=== PATIENT | female | born 1975 | race Caucasian/White ===

== ENCOUNTER → 2016-07-18 | Outpatient (CLI) | payer MEDICARE, MEDICAID ==
[~2016-07-18] MED LIST: ALBU18HF INH; AMIT50TA PO; CYCL-259 PO; ESOM40CA PO; GABA100C8 PO; INSU100C SQ-INSULIN; INSU100V8 SQ; MONT10TA6 PO; OXYC1TAB8 PO; SALM50DI INH; TRAZ50TA18 PO
[2016-07-18 13:38] LABS: HEMOGLOBIN 13.1 g/dL (11.7-16.4)
[2016-07-18 14:01] LABS: BLOOD UREA NITROGEN 10 mg/dL (7-18)
[2016-07-18 14:26] LABS: ASPARTATE AMINO TRANSFERASE 31 U/L (15-37)
[2016-07-19 10:07] LABS: CREATININE URINE 21.5 mg/dL (Not Estab.)
== END | disposition home or self-care (01) ==
LOC: LAB 13:05
PROVIDERS: ATTEND Family Medicine Adult Medicine
DX: E11.9 Type 2 diabetes mellitus without complications (principal); E78.5 Hyperlipidemia, unspecified; I10 Essential (primary) hypertension
CPT/HCPCS: 36415; 80053; 80061; 82043; 82570; 83036; 85025

== ENCOUNTER → 2016-08-01 | Outpatient (CLI) | payer MEDICARE, MEDICAID ==
[2016-08-01 13:05] LABS: HEMOGLOBIN 13.6 g/dL (11.7-16.4)
[2016-08-02 11:06] LABS: CREATININE URINE 57.3 mg/dL (Not Estab.)
== END | disposition home or self-care (01) ==
LOC: LAB 12:38
PROVIDERS: ATTEND Acupuncturist
DX: E11.65 Type 2 diabetes mellitus with hyperglycemia (principal); E11.3219 Type 2 diabetes mellitus with mild nonproliferative diabetic retinopathy with macular edema, unspecified eye; E78.5 Hyperlipidemia, unspecified; L02.93 Carbuncle, unspecified; Z79.4 Long term (current) use of insulin
CPT/HCPCS: 36415; 80061; 82043; 82306; 82570; 83036; 85025

== ENCOUNTER → 2016-12-05 | Outpatient (CLI) | payer MEDICARE, MEDICAID ==
[~2016-12-05] MED LIST changes: +GABA-826 PO; -GABA100C8 PO
[2016-12-05 14:47] LABS: HEMATOCRIT 41.6 % (34.6-47.8); WHITE BLOOD COUNT 7.6 x10^3/uL (3.4-10)
[2016-12-05 14:57] LABS: BLOOD UREA NITROGEN 11 mg/dL (7-18)
[2016-12-05 15:08] LABS: ASPARTATE AMINO TRANSFERASE 20 U/L (15-37)
== END | disposition home or self-care (01) ==
LOC: LAB 14:22
PROVIDERS: ATTEND Obstetrics & Gynecology Gynecology
DX: E78.5 Hyperlipidemia, unspecified (principal); E03.9 Hypothyroidism, unspecified; R53.83 Other fatigue; D64.9 Anemia, unspecified; O92.6 Galactorrhea
CPT/HCPCS: 36415; 80053; 83001; 83002; 84146; 84439; 84443; 85027

== ENCOUNTER → 2016-12-14 | Outpatient (CLI) | payer MEDICARE, MEDICAID | END | disposition home or self-care (01) | LOC: LAB 13:25 | PROVIDERS: ATTEND Acupuncturist | DX: R20.0 Anesthesia of skin (principal); R20.2 Paresthesia of skin | CPT/HCPCS: 36415; 82607; 82746 ==

== ENCOUNTER → 2016-12-28 | Outpatient (CLI) | payer MEDICARE, MEDICAID ==
[2016-12-29 09:08] LABS: CREATININE URINE 32.4 mg/dL (Not Estab.)
== END | disposition home or self-care (01) ==
LOC: LAB 13:05
PROVIDERS: ATTEND Family Medicine Adult Medicine
DX: E11.9 Type 2 diabetes mellitus without complications (principal); E78.5 Hyperlipidemia, unspecified; I10 Essential (primary) hypertension
CPT/HCPCS: 82043; 82570

== ENCOUNTER → 2017-01-06 | Outpatient (CLI) | payer MEDICARE, MEDICAID ==
[2017-01-10 15:07] LABS: TESTOSTERONE FREE DIRECT 0.9 pg/mL (0.0-4.2)
== END | disposition home or self-care (01) ==
LOC: LAB 12:35
PROVIDERS: ATTEND Obstetrics & Gynecology Gynecology
DX: E78.5 Hyperlipidemia, unspecified (principal); R53.83 Other fatigue; D64.9 Anemia, unspecified; E07.9 Disorder of thyroid, unspecified; O92.6 Galactorrhea
CPT/HCPCS: 36415; 83498; 83525; 84402; 84403

== ENCOUNTER → 2017-01-12 | Outpatient (CLI) | payer MEDICARE, MEDICAID ==
[2017-01-12 14:44] LABS: HEMATOCRIT 44.5 % (34.6-47.8); HEMOGLOBIN 15.2 g/dL (11.7-16.4); WHITE BLOOD COUNT 7.5 x10^3/uL (3.4-10)
[2017-01-12 14:46] LABS: BLOOD UREA NITROGEN 14 mg/dL (7-18)
[2017-01-12 14:54] LABS: ASPARTATE AMINO TRANSFERASE 18 U/L (15-37)
== END | disposition home or self-care (01) ==
LOC: STAR 13:03
PROVIDERS: ATTEND Obstetrics & Gynecology
DX: Z01.818 Encounter for other preprocedural examination (principal); N94.6 Dysmenorrhea, unspecified
CPT/HCPCS: 36415; 80053; 81003; 84703; 85025; 93005

== ENCOUNTER → 2017-03-03 | Outpatient (CLI) | payer MEDICARE, MEDICAID ==
[2017-03-03 14:39] LABS: HEMOGLOBIN 13.5 g/dL (11.7-16.4); WHITE BLOOD COUNT 7.5 x10^3/uL (3.4-10)
== END | disposition home or self-care (01) ==
LOC: LAB 14:20
PROVIDERS: ATTEND Acupuncturist
DX: L98.499 Non-pressure chronic ulcer of skin of other sites with unspecified severity (principal); R05 Cough
CPT/HCPCS: 36415; 85025

== ENCOUNTER → 2017-03-17 | Outpatient (CLI) | payer MEDICARE, MEDICAID ==
[2017-03-17 13:46] LABS: HEMATOCRIT 39.8 % (34.6-47.8); HEMOGLOBIN 13.4 g/dL (11.7-16.4); WHITE BLOOD COUNT 5.5 x10^3/uL (3.4-10)
[2017-03-17 13:59] LABS: BLOOD UREA NITROGEN 8 mg/dL (7-18)
[2017-03-17 14:03] LABS: ASPARTATE AMINO TRANSFERASE 18 U/L (15-37)
== END ==
LOC: LAB 13:19
PROVIDERS: ATTEND Internal Medicine Cardiovascular Disease
DX: Z01.810 Encounter for preprocedural cardiovascular examination (principal); I10 Essential (primary) hypertension; E11.8 Type 2 diabetes mellitus with unspecified complications; E78.00 Pure hypercholesterolemia, unspecified; F17.210 Nicotine dependence, cigarettes, uncomplicated
CPT/HCPCS: 36415; 80053; 80061; 83036; 85025

== ENCOUNTER → 2017-04-21 | Outpatient (CLI) | payer MEDICARE, MEDICAID ==
[2017-04-21 15:01] LABS: BASOPHILS # (AUTO) 0.02 x10^3/uL (0-0.1); BASOPHILS % (AUTO) 0 % (0-1); EOSINOPHILS # (AUTO) 0.11 x10^3/uL (0-0.4); EOSINOPHILS % (AUTO) 2 % (1-7); LYMPHOCYTES # (AUTO) 1.84 x10^3/uL (1-3.4); LYMPHOCYTES % (AUTO) 25 % (22-44); MD NO; MEAN CORPUSCULAR HEMOGLOBIN 31.8 pg (27.0-34.8); MEAN CORPUSCULAR HGB CONC 33.7 g/dL (32.4-35.8); MEAN CORPUSCULAR VOLUME 94.3 fL (80-100); MEAN PLATELET VOLUME 10.1 fL (7.4-10.4); MONOCYTES # (AUTO) 0.42 x10^3/uL (0.2-0.8); MONOCYTES % (AUTO) 6 % (2-9); NEUTROPHILS # (AUTO) 4.98 x10^3/uL (1.8-6.8); NEUTROPHILS % (AUTO) 68 % (42-75); PLATELET COUNT 207 x10^3/uL (130-400); RED BLOOD COUNT 4.56 x10^6/uL (3.82-5.3); RED CELL DISTRIBUTION WIDTH 13.1 % (9.6-15.2)
[2017-04-21 15:08] LABS: ALBUMIN 3.6 g/dL (3.4-5.0); ANION GAP 11 mmol/L (5-15); CHLORIDE 100 mmol/L (98-107)
[2017-04-21 15:11] LABS: ALANINE AMINOTRANSFERASE 26 U/L (12-78); ALKALINE PHOSPHATASE 113 U/L (45-117); BILIRUBIN, DIRECT 0.1 mg/dL (0.1-0.2); BILIRUBIN,INDIRECT 0.6 mg/dL (0.0-2.0); BILIRUBIN,TOTAL 0.7 mg/dL (0.2-1.0); CHOLESTEROL, TOTAL 176 mg/dL (140-239); CREATININE 0.89 mg/dL (0.55-1.02); HDL CHOL % 20 % (28-40); HDL CHOLESTEROL (DIRECT) 35 mg/dL (40-60); LDL CHOLESTEROL,CALCULATED 105 mg/dL (54-169); TOTAL PROTEIN 7.5 g/dL (6.4-8.2); TRIGLYCERIDES 179 mg/dL (50-200); VLDL CHOLESTEROL 36 mg/dL (0-25)
[2017-04-21 15:19] LABS: HEMOGLOBIN A1C 11.5 % (4.2-6.3)
== END | disposition home or self-care (01) ==
LOC: LAB 14:35
PROVIDERS: ATTEND Family Medicine
DX: Z00.01 Encounter for general adult medical examination with abnormal findings (principal); R79.89 Other specified abnormal findings of blood chemistry
CPT/HCPCS: 36415; 80048; 80061; 80076; 83036; 85025

== ENCOUNTER → 2017-05-09 | Outpatient (CLI) | payer MEDICARE, MEDICAID ==
[2017-05-09 12:43] LABS: ALBUMIN 3.7 g/dL (3.4-5.0); ANION GAP 8 mmol/L (5-15); CALCIUM 8.8 mg/dL (8.5-10.1); CHLORIDE 101 mmol/L (98-107)
[2017-05-09 12:46] LABS: ALANINE AMINOTRANSFERASE 30 U/L (12-78); ALKALINE PHOSPHATASE 96 U/L (45-117); BILIRUBIN,TOTAL 0.7 mg/dL (0.2-1.0); CHOL/HDL RATIO 4.9; CHOLESTEROL, TOTAL 152 mg/dL (140-239); CREATININE 0.76 mg/dL (0.55-1.02); HDL CHOL % 20 % (28-40); HDL CHOLESTEROL (DIRECT) 31 mg/dL (40-60); LDL CHOLESTEROL,CALCULATED 74 mg/dL (54-169); LDL/HDL RATIO 2.4 (0.5-3.0); TOTAL PROTEIN 7.4 g/dL (6.4-8.2); TRIGLYCERIDES 235 mg/dL (50-200); VLDL CHOLESTEROL 47 mg/dL (0-25)
== END ==
LOC: LAB 12:16
PROVIDERS: ATTEND Family Medicine Adult Medicine
DX: E11.9 Type 2 diabetes mellitus without complications (principal); E78.5 Hyperlipidemia, unspecified
CPT/HCPCS: 36415; 80053; 80061; 82043; 82570; 83036

== ENCOUNTER → 2017-07-25 | Outpatient (CLI) | payer MEDICARE, MEDICAID ==
[2017-07-25 14:37] LABS: HEMOGLOBIN A1C 10.8 % (4.2-6.3)
== END | disposition home or self-care (01) ==
LOC: LAB 13:41
PROVIDERS: ATTEND Family Medicine Adult Medicine
DX: E11.9 Type 2 diabetes mellitus without complications (principal); E78.5 Hyperlipidemia, unspecified
CPT/HCPCS: 36415; 83036

== ENCOUNTER → 2017-08-18 | Outpatient (CLI) | payer MEDICARE, MEDICAID ==
[2017-08-18 14:32] LABS: HEMOGLOBIN A1C 10.9 % (4.2-6.3)
== END | disposition home or self-care (01) ==
LOC: LAB 13:44
PROVIDERS: ATTEND Family Medicine
DX: N92.6 Irregular menstruation, unspecified (principal); N64.3 Galactorrhea not associated with childbirth
CPT/HCPCS: 36415; 83001; 83002; 83036; 84146; 84402; 84403; 84439; 84443

== ENCOUNTER → 2017-11-03 | Outpatient (CLI) | payer MEDICARE, MEDICAID | END | disposition home or self-care (01) | LOC: CFH 14:51 | PROVIDERS: ATTEND Family Medicine | DX: M79.661 Pain in right lower leg (principal); R60.0 Localized edema ==

== ENCOUNTER → 2018-01-26 | Outpatient (CLI) | payer MEDICARE, MEDICAID ==
[~2018-01-26] MED LIST changes: +TRAZ-136 PO; -TRAZ50TA18 PO
[2018-01-26 09:37] LABS: BASOPHILS # (AUTO) 0.01 x10^3/uL (0-0.1); BASOPHILS % (AUTO) 0 % (0-1); EOSINOPHILS # (AUTO) 0.13 x10^3/uL (0-0.4); EOSINOPHILS % (AUTO) 2 % (1-7); LYMPHOCYTES # (AUTO) 1.61 x10^3/uL (1-3.4); LYMPHOCYTES % (AUTO) 26 % (22-44); MD NO; MEAN CORPUSCULAR HEMOGLOBIN 31.3 pg (27.0-34.8); MEAN PLATELET VOLUME 9.8 fL (7.4-10.4); MONOCYTES # (AUTO) 0.41 x10^3/uL (0.2-0.8); MONOCYTES % (AUTO) 7 % (2-9); NEUTROPHILS # (AUTO) 3.94 x10^3/uL (1.8-6.8); NEUTROPHILS % (AUTO) 65 % (42-75); PLATELET COUNT 207 x10^3/uL (130-400); RED BLOOD COUNT 4.51 x10^6/uL (3.82-5.3); RED CELL DISTRIBUTION WIDTH 13.2 % (9.6-15.2)
[2018-01-26 09:49] LABS: ALBUMIN 3.5 g/dL (3.4-5.0); ANION GAP 10 mmol/L (5-15); CALCIUM 8.9 mg/dL (8.5-10.1); CHLORIDE 97 mmol/L (98-107)
[2018-01-26 10:14] LABS: ALANINE AMINOTRANSFERASE 52 U/L (12-78); ALKALINE PHOSPHATASE 155 U/L (45-117); BILIRUBIN,TOTAL 0.5 mg/dL (0.2-1.0); CHOL/HDL RATIO 7.2; CHOLESTEROL, TOTAL 231 mg/dL (140-239); CREATININE 0.94 mg/dL (0.55-1.02); HDL CHOL % 14 % (28-40); HDL CHOLESTEROL (DIRECT) 32 mg/dL (40-60); T4 (THYROXINE) 11.3 mcg/dL (4.8-13.9); TOTAL PROTEIN 7.2 g/dL (6.4-8.2); TRIGLYCERIDES 557 mg/dL (50-200)
[2018-01-26 13:04] LABS: HEMOGLOBIN A1C 12.9 % (4.2-6.3)
== END | disposition home or self-care (01) ==
LOC: LAB 09:11
PROVIDERS: ATTEND Registered Nurse
DX: I10 Essential (primary) hypertension (principal); E11.40 Type 2 diabetes mellitus with diabetic neuropathy, unspecified; E11.65 Type 2 diabetes mellitus with hyperglycemia; Z71.6 Tobacco abuse counseling; Z68.41 Body mass index [BMI] 40.0-44.9, adult
CPT/HCPCS: 36415; 80053; 80061; 82043; 82306; 82570; 82607; 83036; 84436; 84443; 84481; 85025

== ENCOUNTER → 2018-01-30 | Outpatient (CLI) | payer MEDICARE, MEDICAID ==
[2018-01-30 15:04] LABS: ALANINE AMINOTRANSFERASE 53 U/L (12-78); ALBUMIN 3.6 g/dL (3.4-5.0); ANION GAP 7 mmol/L (5-15); CALCIUM 9.2 mg/dL (8.5-10.1); CHLORIDE 100 mmol/L (98-107)
[2018-01-30 15:07] LABS: ALKALINE PHOSPHATASE 155 U/L (45-117); BILIRUBIN,TOTAL 0.5 mg/dL (0.2-1.0); CHOLESTEROL, TOTAL 232 mg/dL (140-239); HDL CHOL % 14 % (28-40); HDL CHOLESTEROL (DIRECT) 33 mg/dL (40-60); TOTAL PROTEIN 7.7 g/dL (6.4-8.2); TRIGLYCERIDES 453 mg/dL (50-200)
[2018-01-30 15:28] LABS: HEMOGLOBIN A1C 13.1 % (4.2-6.3)
== END | disposition home or self-care (01) ==
LOC: LAB 14:32
PROVIDERS: ATTEND Family Medicine Adult Medicine
DX: E11.9 Type 2 diabetes mellitus without complications (principal); E78.5 Hyperlipidemia, unspecified
CPT/HCPCS: 36415; 80053; 80061; 83036

== ENCOUNTER → 2018-04-03 | Outpatient (CLI) | payer MEDICARE, MEDICAID ==
[~2018-04-03] MED LIST changes: -TRAZ-136 PO; +TRAZ50TA66 PO
== END | disposition home or self-care (01) ==
LOC: CFH 14:19
PROVIDERS: ATTEND Obstetrics & Gynecology Gynecology
DX: N64.59 Other signs and symptoms in breast (principal); N93.9 Abnormal uterine and vaginal bleeding, unspecified
CPT/HCPCS: 77066; G0279

== ENCOUNTER 2018-05-19 18:34 | Emergency (ER) | payer MEDICARE, MEDICAID ==
[~2018-05-19] VITALS: Ht 157.5 cm; Wt 95.0 kg
--- NOTE | 2018-05-19 19:12 | NUR ---
PT C/O "DIABETIC WOUND" TO LEFT FOOT. PT PRESENTS TO ED W/ MARKED SWELLING TO LL EXTREMITY AND FOOT WELL RED AND HOT. PT STATES WOUND HAPPENED A COUPLE MONTHS AGO W/ MULTIPLE HOSPITILIZATIONS TO [facility]. PT STATES "I HAVE BEEN 86'D FROM [facility] BECAUSE I WON AN ARGUMENT W/ [facility]. PT DENIES ANY FEVERS AT HOME. MONITORING APPLIED. VSS. CALL LIGHT WITHIN REACH. AWAITING ORDERS.
[2018-05-19] MEDS ORDERED: HYDROcodone/APAP 5/325 TABLET ONE (19:24)
--- NOTE | 2018-05-19 19:28 | NUR ---
PT TO US.
[2018-05-19] MEDS ORDERED: HYDROcodone/APAP 5/325 TABLET PO ONE (19:30)
[2018-05-19 20:14] LABS: BASOPHILS # (AUTO) 0.03 x10^3/uL (0-0.1); BASOPHILS % (AUTO) 1 % (0-1); EOSINOPHILS # (AUTO) 0.09 x10^3/uL (0-0.4); EOSINOPHILS % (AUTO) 2 % (1-7); LYMPHOCYTES # (AUTO) 1.14 x10^3/uL (1-3.4); LYMPHOCYTES % (AUTO) 20 % (22-44); MD NO; MEAN CORPUSCULAR HEMOGLOBIN 30.2 pg (27.0-34.8); MEAN CORPUSCULAR HGB CONC 33.2 g/dL (32.4-35.8); MEAN CORPUSCULAR VOLUME 90.9 fL (80-100); MEAN PLATELET VOLUME 9.8 fL (7.4-10.4); MONOCYTES % (AUTO) 5 % (2-9); NEUTROPHILS # (AUTO) 4.06 x10^3/uL (1.8-6.8); NEUTROPHILS % (AUTO) 72 % (42-75); PLATELET COUNT 239 x10^3/uL (130-400); RED BLOOD COUNT 3.96 x10^6/uL (3.82-5.3); RED CELL DISTRIBUTION WIDTH 12.7 % (9.6-15.2)
[2018-05-19 20:17] LABS: ALBUMIN 3.3 g/dL (3.4-5.0); ANION GAP 9 mmol/L (5-15); CALCIUM 8.8 mg/dL (8.5-10.1); CHLORIDE 105 mmol/L (98-107); CREATININE 0.85 mg/dL (0.55-1.02)
[2018-05-19 20:45] VITALS: BP 163/92
== END 2018-05-19 21:45 | disposition home or self-care (01) ==
LOC: ED 20:17
DX: L03.116 Cellulitis of left lower limb (principal); L03.032 Cellulitis of left toe; E11.9 Type 2 diabetes mellitus without complications; F17.200 Nicotine dependence, unspecified, uncomplicated
CPT/HCPCS: 36415; 80048; 82040; 85025; 99284

== ENCOUNTER 2018-06-16 12:31 | Inpatient (IN) | payer MEDICARE, MEDICAID ==
[~2018-06-16] VITALS: Ht 157.5 cm; Wt 101.4 kg
--- NOTE | 2018-06-16 13:00 | NUR ---
ASSUMED CARE OF PT FROM [facility] AT THIS TIME. PT C/O LEFT FOOT PAIN S/P GREAT TOE AMPUTATION ON 06/14/18. PT HAD SURGERY DONE AT [facility] BY DR. BARRERA. PT VISITED THE [facility] TODAY AND WAS TOLD TO COME TO THE ER FOR ADMIT.
[2018-06-16] MEDS ORDERED: SODIUM CHLORIDE FLUSH 10ML SYR IVF ONE (13:30)
--- NOTE | 2018-06-16 13:40 | NUR ---
PAIN MEDS REQUESTED OF DR. FONSECA AFTER IV WAS STARTED.
[2018-06-16 13:48] LABS: BASOPHILS # (AUTO) 0.02 x10^3/uL (0-0.1); BASOPHILS % (AUTO) 0 % (0-1); EOSINOPHILS # (AUTO) 0.09 x10^3/uL (0-0.4); EOSINOPHILS % (AUTO) 1 % (1-7); LYMPHOCYTES # (AUTO) 1.73 x10^3/uL (1-3.4); LYMPHOCYTES % (AUTO) 22 % (22-44); MD NO; MEAN CORPUSCULAR HEMOGLOBIN 30.8 pg (27.0-34.8); MEAN CORPUSCULAR HGB CONC 33.6 g/dL (32.4-35.8); MEAN CORPUSCULAR VOLUME 91.5 fL (80-100); MEAN PLATELET VOLUME 9.6 fL (7.4-10.4); MONOCYTES # (AUTO) 0.41 x10^3/uL (0.2-0.8); MONOCYTES % (AUTO) 5 % (2-9); NEUTROPHILS # (AUTO) 5.59 x10^3/uL (1.8-6.8); NEUTROPHILS % (AUTO) 71 % (42-75); PLATELET COUNT 204 x10^3/uL (130-400); RED BLOOD COUNT 3.85 x10^6/uL (3.82-5.3); RED CELL DISTRIBUTION WIDTH 14.9 % (9.6-15.2)
[2018-06-16 13:55] LABS: ALBUMIN 3.4 g/dL (3.4-5.0); ANION GAP 6 mmol/L (5-15); CALCIUM 8.9 mg/dL (8.5-10.1); CHLORIDE 108 mmol/L (98-107); CREATININE 0.71 mg/dL (0.55-1.02)
[2018-06-16] MEDS ORDERED: VANCOMYCIN PER PHARMACY MC ONE (14:00)
[2018-06-16] MEDS ORDERED: VANCOMYCIN 1,400 MG in SODIUM CHLORIDE 0.9% 250 ML IV ONE (14:30)
--- NOTE | 2018-06-16 14:42 | NUR ---
ANTIBIOTICS STARTED AND NO BLOOD CULTURES NEEDED PER DR. FONSECA. PAIN MEDS REQUESTED OF DR. FONSECA.
--- NOTE | 2018-06-16 14:45 | NUR ---
PT RESTING IN BED IN NAD AND PLAYING WITH HER PHONE.
--- NOTE | 2018-06-16 14:55 | NUR ---
SBAR report received from RNLance. IV ABX running and pt aware of plan for admit.
[2018-06-16] MEDS ORDERED: SODIUM CHLORIDE FLUSH 10ML SYR IVF PRN (15:00)
--- NOTE | 2018-06-16 15:05 | NUR ---
Dr. Thorne, [facility], at bedside to evaluate pt for admission.
[2018-06-16] MEDS ORDERED: SODIUM CHLORIDE 0.9% 1,000 ML IV SCH (15:15)
--- NOTE | 2018-06-16 15:18 | NUR ---
Pt to bathroom with EDT assistance.
[2018-06-16] MEDS ORDERED: ACETAMINOPHEN 325 MG TABLET PO PRN (15:30)
[2018-06-16] MEDS ORDERED: DOCUSATE 100 MG CAPSULE PO PRN (15:30)
[2018-06-16] MEDS ORDERED: VANCOMYCIN PER PHARMACY MC PRN (15:30)
[2018-06-16] MEDS ORDERED: POLYETHYLENE GLYCOL 17 GM PACKET PO PRN (15:30)
[2018-06-16] MEDS ORDERED: ENALAPRILAT 1.25 MG/ML, 2ML IVPush PRN (15:30)
[2018-06-16] MEDS ORDERED: ONDANSETRON ODT 4 MG PO PRN (15:30)
[2018-06-16] MEDS ORDERED: LABETALOL 5 MG/ML SYRINGE IVPush PRN (15:30)
[2018-06-16] MEDS ORDERED: ZOSYN PER PHARMACY MC PRN (15:30)
[2018-06-16] MEDS ORDERED: BISACODYL 10 MG SUPP PR PRN (15:30)
[2018-06-16] MEDS ORDERED: IBUPROFEN 600 MG TABLET PO PRN (15:30)
[2018-06-16 15:55] LABS: HCT (SEDRATE) 35.2 % (34.6-47.8)
[2018-06-16] MEDS ORDERED: morphine SULFATE 10 MG/ML, 1ML IVPush PRN (16:00)
[2018-06-16] MEDS ORDERED: ALBUTEROL SULFATE 2.5 MG/3 ML NPPB PRN (16:00)
[2018-06-16] MEDS: INSULIN LISPRO 100 UNITS/ML, PEN SQ-INSULIN SCH ×2 (16:00→20:24)
[2018-06-16] MEDS ORDERED: INSULIN LISPRO 100 UNITS/ML, PEN SQ-INSULIN SCH (16:00)
[2018-06-16] MEDS ORDERED: DEXTROSE 50%, 50ML SYRINGE IVPush PRN (16:00)
[2018-06-16] MEDS ORDERED: GLUCAGON 1 MG IM PRN (16:00)
[2018-06-16] MEDS: HEPARIN 5,000 UNITS/ML, 1ML SQ SCH (16:00)
[2018-06-16] MEDS ORDERED: DEXTROSE 4 GM TAB.CHEW PO PRN (16:00)
[2018-06-16 16:10] VITALS: BP 148/86
[2018-06-16] MEDS: NICOTINE 14MG/24 HR PATCH.TD24 TD SCH (16:30)
[2018-06-16] MEDS ORDERED: PHARMACOKINETIC MONITORING MC PRN (16:30)
[2018-06-16] MEDS ORDERED: PHARMACOKINETIC CONSULTATION MC ONE (16:30)
[2018-06-16 17:25] LABS: CHOL/HDL RATIO 5.1; LDL/HDL RATIO 3.1 (0.5-3.0)
[2018-06-16] MEDS: KETOROLAC 30 MG/1 ML IVPush SCH ×2 (17:26→23:39)
[2018-06-16 18:53] VITALS: BP 134/84
[2018-06-16] MEDS: CEFEPIME 2 GM in DEXTROSE 5% 100 ML IV SCH (19:51)
[2018-06-16] MEDS: MONTELUKAST 10 MG TABLET PO SCH (20:15)
[2018-06-16] MEDS: SODIUM CHLORIDE FLUSH 10ML SYR IVF SCH (20:15)
[2018-06-16] MEDS: GABAPENTIN 100 MG CAPSULE PO SCH (20:15)
[2018-06-16] MEDS: INSULIN GLARGINE 100 UNITS/ML, PEN SQ-INSULIN SCH (21:07)
[2018-06-16] MEDS: ALBUTEROL/IPRATROPIUM 2.5MG/0.5MG, 3 ML NPPB SCH ×2 (21:20→23:05)
[2018-06-17 01:45] VITALS: BP 121/74
[2018-06-17] MEDS: VANCOMYCIN 1,800 MG in SODIUM CHLORIDE 0.9% 250 ML IV SCH ×2 (02:29→15:21)
[2018-06-17] MEDS: KETOROLAC 30 MG/1 ML IVPush SCH ×3 (05:42→18:13)
[2018-06-17] MEDS: OMEPRAZOLE 20 MG CAPSULE.DR PO SCH (05:46)
[2018-06-17 05:57] LABS: BASOPHILS # (AUTO) 0.02 x10^3/uL (0-0.1); BASOPHILS % (AUTO) 0 % (0-1); EOSINOPHILS # (AUTO) 0.22 x10^3/uL (0-0.4); EOSINOPHILS % (AUTO) 4 % (1-7); LYMPHOCYTES # (AUTO) 1.97 x10^3/uL (1-3.4); LYMPHOCYTES % (AUTO) 36 % (22-44); MD NO; MEAN CORPUSCULAR HEMOGLOBIN 31.2 pg (27.0-34.8); MEAN CORPUSCULAR VOLUME 91.8 fL (80-100); MEAN PLATELET VOLUME 9.6 fL (7.4-10.4); MONOCYTES # (AUTO) 0.43 x10^3/uL (0.2-0.8); MONOCYTES % (AUTO) 8 % (2-9); NEUTROPHILS # (AUTO) 2.84 x10^3/uL (1.8-6.8); NEUTROPHILS % (AUTO) 52 % (42-75); PLATELET COUNT 174 x10^3/uL (130-400); RED BLOOD COUNT 3.43 x10^6/uL (3.82-5.3); RED CELL DISTRIBUTION WIDTH 15.1 % (9.6-15.2)
[2018-06-17] MEDS ORDERED: VANCOMYCIN 1,500 MG in SODIUM CHLORIDE 0.9% 250 ML IV SCH (06:00)
[2018-06-17 06:05] LABS: ANION GAP 5 mmol/L (5-15); CALCIUM 7.9 mg/dL (8.5-10.1); CHLORIDE 111 mmol/L (98-107); CREATININE 0.69 mg/dL (0.55-1.02)
[2018-06-17 06:55] VITALS: BP 117/76
[2018-06-17] MEDS: INSULIN LISPRO 100 UNITS/ML, PEN SQ-INSULIN SCH ×4 (07:00→21:00)
[2018-06-17] MEDS ORDERED: ALBUTEROL/IPRATROPIUM 2.5MG/0.5MG, 3 ML NPPB SCH (07:00)
[2018-06-17] MEDS: HEPARIN 5,000 UNITS/ML, 1ML SQ SCH ×3 (08:00→15:21)
[2018-06-17] MEDS: GABAPENTIN 100 MG CAPSULE PO SCH ×2 (09:44→21:14)
[2018-06-17] MEDS: SENNA/DOCUSATE TABLET PO SCH (09:44)
[2018-06-17] MEDS: CEFEPIME 2 GM in DEXTROSE 5% 100 ML IV SCH ×2 (09:45→21:14)
[2018-06-17] MEDS: SODIUM CHLORIDE FLUSH 10ML SYR IVF SCH ×2 (09:45→21:00)
[2018-06-17] MEDS ORDERED: POTASSIUM CHLORIDE 20 MEQ TAB.ER.PRT PO ONE (12:00)
[2018-06-17 13:08] VITALS: BP 136/70
[2018-06-17] MEDS: NICOTINE 14MG/24 HR PATCH.TD24 TD SCH (16:30)
[2018-06-17] MEDS: OXYcodone IR 5MG TABLET PO PRN ×2 (16:30→21:14)
[2018-06-17 19:00] LABS: RAPID INFLUENZA A Negative (Negative); RAPID INFLUENZA B Negative (Negative)
[2018-06-17 19:06] VITALS: BP 129/66
[2018-06-17] MEDS: MONTELUKAST 10 MG TABLET PO SCH (21:14)
[2018-06-17] MEDS: INSULIN GLARGINE 100 UNITS/ML, PEN SQ-INSULIN SCH (21:29)
[2018-06-18] MEDS: KETOROLAC 30 MG/1 ML IVPush SCH ×5 (00:30→18:00)
[2018-06-18 00:58] VITALS: BP 118/76
[2018-06-18] MEDS: OXYcodone IR 5MG TABLET PO PRN ×5 (01:54→20:37)
[2018-06-18] MEDS: VANCOMYCIN 1,800 MG in SODIUM CHLORIDE 0.9% 250 ML IV SCH ×3 (03:44→20:38)
[2018-06-18 05:39] LABS: ANION GAP 5 mmol/L (5-15); CALCIUM 8.4 mg/dL (8.5-10.1); CHLORIDE 113 mmol/L (98-107); CREATININE 0.76 mg/dL (0.55-1.02)
[2018-06-18] MEDS: OMEPRAZOLE 20 MG CAPSULE.DR PO SCH (06:19)
[2018-06-18] MEDS: INSULIN LISPRO 100 UNITS/ML, PEN SQ-INSULIN SCH ×4 (07:00→20:45)
[2018-06-18 07:07] VITALS: BP 112/70
[2018-06-18] MEDS ORDERED: CALCIUM CARBONATE 500 MG TAB.CHEW PO PRN (07:30)
[2018-06-18] MEDS: HEPARIN 5,000 UNITS/ML, 1ML SQ SCH ×4 (08:00→23:19)
[2018-06-18] MEDS: CEFEPIME 2 GM in DEXTROSE 5% 100 ML IV SCH ×2 (08:22→10:54)
[2018-06-18] MEDS: GABAPENTIN 100 MG CAPSULE PO SCH ×2 (08:22→20:36)
[2018-06-18] MEDS: SENNA/DOCUSATE TABLET PO SCH (08:23)
[2018-06-18] MEDS: SODIUM CHLORIDE FLUSH 10ML SYR IVF SCH ×2 (08:23→20:38)
[2018-06-18] MEDS: SODIUM CHLORIDE NASAL SPRAY 45ML BOTTLE NAS PRN (12:02)
[2018-06-18 12:50] VITALS: BP 128/83
[2018-06-18] MEDS: NICOTINE 14MG/24 HR PATCH.TD24 TD SCH (16:08)
[2018-06-18 19:18] VITALS: BP 118/74
[2018-06-18] MEDS: MONTELUKAST 10 MG TABLET PO SCH (20:36)
[2018-06-18] MEDS: INSULIN GLARGINE 100 UNITS/ML, PEN SQ-INSULIN SCH (20:48)
[2018-06-19] MEDS: KETOROLAC 30 MG/1 ML IVPush SCH ×4 (00:01→17:51)
[2018-06-19] MEDS: CEFEPIME 2 GM in DEXTROSE 5% 100 ML IV SCH ×2 (00:01→11:26)
[2018-06-19 03:21] VITALS: BP 111/70
[2018-06-19] MEDS: OMEPRAZOLE 20 MG CAPSULE.DR PO SCH (06:07)
[2018-06-19] MEDS: OXYcodone IR 5MG TABLET PO PRN ×3 (06:07→22:20)
[2018-06-19] MEDS: INSULIN LISPRO 100 UNITS/ML, PEN SQ-INSULIN SCH ×4 (07:00→20:34)
[2018-06-19 07:25] VITALS: BP 122/73
[2018-06-19] MEDS: HEPARIN 5,000 UNITS/ML, 1ML SQ SCH ×2 (08:00→16:00)
[2018-06-19] MEDS: SODIUM CHLORIDE NASAL SPRAY 45ML BOTTLE NAS PRN (08:18)
[2018-06-19] MEDS: SODIUM CHLORIDE FLUSH 10ML SYR IVF SCH ×2 (09:00→20:23)
[2018-06-19] MEDS ORDERED: SULF1TAB24 PO (09:19)
[2018-06-19] MEDS ORDERED: CLIN300C8 PO (09:19)
[2018-06-19] MEDS: SENNA/DOCUSATE TABLET PO SCH (11:26)
[2018-06-19] MEDS: GABAPENTIN 100 MG CAPSULE PO SCH ×2 (11:26→20:21)
[2018-06-19 12:16] LABS: HEMOGLOBIN A1C 9.5 % (4.2-6.3)
[2018-06-19 13:20] VITALS: BP 129/81
[2018-06-19] MEDS: VANCOMYCIN 1,800 MG in SODIUM CHLORIDE 0.9% 250 ML IV SCH (15:52)
[2018-06-19] MEDS: NICOTINE 14MG/24 HR PATCH.TD24 TD SCH (16:30)
[2018-06-19 19:36] VITALS: BP 132/77
[2018-06-19] MEDS: MONTELUKAST 10 MG TABLET PO SCH (20:22)
[2018-06-19] MEDS: INSULIN GLARGINE 100 UNITS/ML, PEN SQ-INSULIN SCH (20:34)
[2018-06-20] MEDS: KETOROLAC 30 MG/1 ML IVPush SCH ×2 (00:03→05:58)
[2018-06-20] MEDS: TRAZODONE 50MG TABLET PO PRN (00:07)
[2018-06-20 01:28] VITALS: BP 146/82
[2018-06-20] MEDS: OXYcodone IR 5MG TABLET PO PRN (05:16)
[2018-06-20] MEDS: OMEPRAZOLE 20 MG CAPSULE.DR PO SCH (05:58)
[2018-06-20] MEDS ORDERED: KETOROLAC 30 MG/1 ML IVPush ONE (06:00)
[2018-06-20] MEDS: SODIUM CHLORIDE NASAL SPRAY 45ML BOTTLE NAS PRN (06:02)
[2018-06-20 06:32] VITALS: BP 122/65
[2018-06-20] MEDS: INSULIN LISPRO 100 UNITS/ML, PEN SQ-INSULIN SCH ×4 (07:54→21:57)
[2018-06-20] MEDS: SENNA/DOCUSATE TABLET PO SCH (07:55)
[2018-06-20] MEDS: GABAPENTIN 100 MG CAPSULE PO SCH ×2 (07:55→21:56)
[2018-06-20] MEDS: SULFAMETH./TRIMETHOPRIM DS 800MG/160MG TABLET PO SCH ×2 (07:55→21:56)
[2018-06-20] MEDS: HEPARIN 5,000 UNITS/ML, 1ML SQ SCH ×3 (08:00→16:00)
[2018-06-20] MEDS: SODIUM CHLORIDE FLUSH 10ML SYR IVF SCH ×2 (09:00→22:00)
[2018-06-20] MEDS ORDERED: CLINDAMYCIN 300 MG CAPSULE PO ONE (09:00)
[2018-06-20 13:16] VITALS: BP 130/81
[2018-06-20] MEDS: KETOROLAC 30 MG/1 ML IVPush PRN ×2 (15:30→21:56)
[2018-06-20] MEDS: NICOTINE 14MG/24 HR PATCH.TD24 TD SCH (16:30)
[2018-06-20 19:37] VITALS: BP 133/77
[2018-06-20] MEDS: MONTELUKAST 10 MG TABLET PO SCH (21:00)
[2018-06-20] MEDS: INSULIN GLARGINE 100 UNITS/ML, PEN SQ-INSULIN SCH (21:58)
[2018-06-21 02:22] VITALS: BP 130/81
[2018-06-21] MEDS: SODIUM CHLORIDE NASAL SPRAY 45ML BOTTLE NAS PRN (02:46)
[2018-06-21] MEDS ORDERED: IBUPROFEN 600 MG TABLET PO PRN ×2 (05:00→16:30)
[2018-06-21 05:28] LABS: MICROSCOPIC NOT IND
[2018-06-21 05:33] LABS: CULTURE INDICATED? NO
[2018-06-21] MEDS: OMEPRAZOLE 20 MG CAPSULE.DR PO SCH (06:23)
[2018-06-21 06:26] VITALS: BP 141/84
[2018-06-21] MEDS: INSULIN LISPRO 100 UNITS/ML, PEN SQ-INSULIN SCH ×4 (07:04→20:53)
[2018-06-21 07:25] LABS: MEAN CORPUSCULAR HEMOGLOBIN 30.1 pg (27.0-34.8); MEAN CORPUSCULAR HGB CONC 33.2 g/dL (32.4-35.8); MEAN CORPUSCULAR VOLUME 90.8 fL (80-100); MEAN PLATELET VOLUME 9.2 fL (7.4-10.4); PLATELET COUNT 238 x10^3/uL (130-400); RED BLOOD COUNT 3.52 x10^6/uL (3.82-5.3); RED CELL DISTRIBUTION WIDTH 14.9 % (9.6-15.2)
[2018-06-21 07:28] LABS: ALANINE AMINOTRANSFERASE 31 U/L (12-78); ALBUMIN 2.9 g/dL (3.4-5.0); ANION GAP 5 mmol/L (5-15); CALCIUM 8.3 mg/dL (8.5-10.1); CHLORIDE 111 mmol/L (98-107); CREATININE 0.92 mg/dL (0.55-1.02)
[2018-06-21 07:32] LABS: ALKALINE PHOSPHATASE 156 U/L (45-117); BILIRUBIN,TOTAL 0.4 mg/dL (0.2-1.0); TOTAL PROTEIN 6.2 g/dL (6.4-8.2); TROPONIN I < 0.015 ng/mL (0.000-0.045)
[2018-06-21] MEDS: HEPARIN 5,000 UNITS/ML, 1ML SQ SCH ×4 (08:00→21:54)
[2018-06-21 08:12] LABS: MD SCAN
[2018-06-21 08:13] LABS: BASOPHILS # (AUTO) 0.03 x10^3/uL (0-0.1); BASOPHILS % (AUTO) 1 % (0-1); EOSINOPHILS # (AUTO) 0.13 x10^3/uL (0-0.4); EOSINOPHILS % (AUTO) 4 % (1-7); LYMPHOCYTES # (AUTO) 0.77 x10^3/uL (1-3.4); LYMPHOCYTES % (AUTO) 24 % (22-44); MONOCYTES # (AUTO) 0.33 x10^3/uL (0.2-0.8); MONOCYTES % (AUTO) 10 % (2-9); NEUTROPHILS # (AUTO) 1.99 x10^3/uL (1.8-6.8); NEUTROPHILS % (AUTO) 61 % (42-75)
[2018-06-21] MEDS: SENNA/DOCUSATE TABLET PO SCH (09:33)
[2018-06-21] MEDS: SODIUM CHLORIDE FLUSH 10ML SYR IVF SCH ×2 (09:33→20:51)
[2018-06-21] MEDS: GABAPENTIN 100 MG CAPSULE PO SCH ×2 (09:33→20:51)
[2018-06-21] MEDS: SULFAMETH./TRIMETHOPRIM DS 800MG/160MG TABLET PO SCH ×2 (09:33→20:51)
[2018-06-21 11:00] VITALS: BP 133/81
[2018-06-21] MEDS: OXYcodone IR 5MG TABLET PO PRN (11:04)
[2018-06-21] MEDS: NICOTINE 14MG/24 HR PATCH.TD24 TD SCH (16:05)
[2018-06-21 19:15] VITALS: BP 120/80
[2018-06-21] MEDS: TRAZODONE 50MG TABLET PO PRN (20:51)
[2018-06-21] MEDS: MONTELUKAST 10 MG TABLET PO SCH (20:52)
[2018-06-21] MEDS: INSULIN GLARGINE 100 UNITS/ML, PEN SQ-INSULIN SCH (20:53)
[2018-06-22 00:02] VITALS: BP 137/82
[2018-06-22] MEDS: OMEPRAZOLE 20 MG CAPSULE.DR PO SCH (05:10)
[2018-06-22] MEDS: OXYcodone IR 5MG TABLET PO PRN ×2 (05:10→21:50)
[2018-06-22 06:53] VITALS: BP 103/62
[2018-06-22] MEDS: HEPARIN 5,000 UNITS/ML, 1ML SQ SCH ×2 (07:27→16:00)
[2018-06-22] MEDS: SODIUM CHLORIDE FLUSH 10ML SYR IVF SCH ×2 (08:00→21:12)
[2018-06-22] MEDS: INSULIN LISPRO 100 UNITS/ML, PEN SQ-INSULIN SCH ×4 (08:00→20:19)
[2018-06-22] MEDS: GABAPENTIN 100 MG CAPSULE PO SCH ×2 (08:02→20:06)
[2018-06-22] MEDS: SENNA/DOCUSATE TABLET PO SCH (08:02)
[2018-06-22] MEDS: SULFAMETH./TRIMETHOPRIM DS 800MG/160MG TABLET PO SCH ×2 (08:02→20:06)
[2018-06-22 12:23] VITALS: BP 150/89
[2018-06-22] MEDS: NICOTINE 14MG/24 HR PATCH.TD24 TD SCH (16:30)
[2018-06-22] MEDS: MONTELUKAST 10 MG TABLET PO SCH (20:06)
[2018-06-22] MEDS: INSULIN GLARGINE 100 UNITS/ML, PEN SQ-INSULIN SCH (20:20)
[2018-06-22 20:23] VITALS: BP 125/82
[2018-06-22] MEDS: GUAIFENESIN 100 MG/5 ML, 5ML UDC PO PRN (21:49)
[2018-06-23 00:25] VITALS: BP 130/76
[2018-06-23] MEDS: OMEPRAZOLE 20 MG CAPSULE.DR PO SCH (06:18)
[2018-06-23 06:57] VITALS: BP 131/81
[2018-06-23] MEDS: INSULIN LISPRO 100 UNITS/ML, PEN SQ-INSULIN SCH ×3 (07:00→16:47)
[2018-06-23] MEDS: HEPARIN 5,000 UNITS/ML, 1ML SQ SCH ×3 (08:50→16:47)
[2018-06-23] MEDS: GABAPENTIN 100 MG CAPSULE PO SCH (08:51)
[2018-06-23] MEDS: SENNA/DOCUSATE TABLET PO SCH (08:51)
[2018-06-23] MEDS: SODIUM CHLORIDE FLUSH 10ML SYR IVF SCH (08:51)
[2018-06-23] MEDS: SULFAMETH./TRIMETHOPRIM DS 800MG/160MG TABLET PO SCH (08:51)
[2018-06-23] MEDS ORDERED: BENZONATATE 100 MG CAPSULE PO PRN (09:30)
[2018-06-23] MEDS: GUAIFENESIN 100 MG/5 ML, 5ML UDC PO PRN (11:27)
[2018-06-23 14:00] VITALS: BP 134/76
[2018-06-23] MEDS: OXYcodone IR 5MG TABLET PO PRN (16:46)
[2018-06-23] MEDS: NICOTINE 14MG/24 HR PATCH.TD24 TD SCH (16:47)
== END 2018-06-23 19:00 | disposition home or self-care (01) | DRG 603 ==
LOC: ED 14:20 → EDIP 14:54 → 3NE 15:59
PROVIDERS: ADMIT Family Medicine; ATTEND Family Medicine
DX: L03.116 Cellulitis of left lower limb (principal); Z68.41 Body mass index [BMI] 40.0-44.9, adult; K21.9 Gastro-esophageal reflux disease without esophagitis; J44.9 Chronic obstructive pulmonary disease, unspecified; I25.10 Atherosclerotic heart disease of native coronary artery without angina pectoris; F17.200 Nicotine dependence, unspecified, uncomplicated; W18.39XA Other fall on same level, initial encounter; E78.5 Hyperlipidemia, unspecified; E66.9 Obesity, unspecified; E11.40 Type 2 diabetes mellitus with diabetic neuropathy, unspecified; I10 Essential (primary) hypertension; Z89.432 Acquired absence of left foot; Z83.3 Family history of diabetes mellitus; Z82.5 Family history of asthma and other chronic lower respiratory diseases; Z79.4 Long term (current) use of insulin; Y93.89 Activity, other specified; Y92.89 Other specified places as the place of occurrence of the external cause; Y99.8 Other external cause status
CPT/HCPCS: 36415; 80048; 80053; 80061; 80202; 81003; 82040; 82962; 83036; 84484; 85025; 85651; 86140; 87040; 87400; 93005; 96365; G0378; J1885; J3370; Q0162; J1815; J7030; J7050

== ENCOUNTER 2018-06-23 22:38 | Inpatient (IN) | payer MEDICARE, MEDICAID ==
[~2018-06-23] VITALS: Ht 157.5 cm; Wt 102.5 kg
[~2018-06-23 22:38] MED LIST changes: +CLIN300C8 PO; +SULF1TAB24 PO
[2018-06-23 23:37] LABS: BASOPHILS # (AUTO) 0.03 x10^3/uL (0-0.1); BASOPHILS % (AUTO) 1 % (0-1); EOSINOPHILS # (AUTO) 0.08 x10^3/uL (0-0.4); EOSINOPHILS % (AUTO) 2 % (1-7); LYMPHOCYTES % (AUTO) 15 % (22-44); MD NO; MEAN CORPUSCULAR HEMOGLOBIN 30.9 pg (27.0-34.8); MEAN CORPUSCULAR HGB CONC 33.9 g/dL (32.4-35.8); MEAN CORPUSCULAR VOLUME 91.1 fL (80-100); MEAN PLATELET VOLUME 8.8 fL (7.4-10.4); MONOCYTES # (AUTO) 0.42 x10^3/uL (0.2-0.8); MONOCYTES % (AUTO) 9 % (2-9); NEUTROPHILS # (AUTO) 3.49 x10^3/uL (1.8-6.8); NEUTROPHILS % (AUTO) 74 % (42-75); PLATELET COUNT 315 x10^3/uL (130-400); RED BLOOD COUNT 3.71 x10^6/uL (3.82-5.3); RED CELL DISTRIBUTION WIDTH 14.4 % (9.6-15.2)
[2018-06-23 23:45] LABS: ALBUMIN 3.4 g/dL (3.4-5.0); ANION GAP 8 mmol/L (5-15); CALCIUM 8.6 mg/dL (8.5-10.1); CHLORIDE 105 mmol/L (98-107)
[2018-06-23 23:51] LABS: CREATININE 1.17 mg/dL (0.55-1.02); TROPONIN I < 0.015 ng/mL (0.000-0.045)
[2018-06-24] MEDS ORDERED: ACETAMINOPHEN 500 MG TABLET ONE (00:13)
[2018-06-24] MEDS ORDERED: CEFTRIAXONE PMX 1GM/50ML 50 ML ONE (00:16)
--- NOTE | 2018-06-24 00:25 | NUR ---
Medicated for fever, flu swab obtained and sent, blood cultures drawn times 2 and then antibiotics begun
[2018-06-24] MEDS ORDERED: CEFTRIAXONE PMX 1GM/50ML 50 ML IV ONE (00:30)
[2018-06-24] MEDS ORDERED: ACETAMINOPHEN 500 MG TABLET PO ONE (00:30)
[2018-06-24] MEDS ORDERED: AZITHROMYCIN 500 MG in SODIUM CHLORIDE 0.9% 250 ML IVPB ONE (00:30)
[2018-06-24 00:47] LABS: RAPID INFLUENZA A Negative (Negative); RAPID INFLUENZA B Negative (Negative)
--- NOTE | 2018-06-24 00:52 | NUR ---
[facility] AT BEDSIDE.
[2018-06-24] MEDS ORDERED: SODIUM CHLORIDE FLUSH 10ML SYR IVF PRN (01:00)
--- NOTE | 2018-06-24 01:03 | NUR ---
[facility] UNWARAP DRESSING, L GREAT TOE AMPUTATION, WOUND CLEAN AND DRY, NO SIGNS AND SYMPTOMS OF INFECTION
[2018-06-24] MEDS ORDERED: ACETAMINOPHEN 325 MG TABLET PO PRN (01:30)
[2018-06-24] MEDS ORDERED: POLYETHYLENE GLYCOL 17 GM PACKET PO PRN (01:30)
[2018-06-24] MEDS ORDERED: DEXTROSE 50%, 50ML SYRINGE IVPush PRN (01:30)
[2018-06-24] MEDS ORDERED: GLUCAGON 1 MG IM PRN (01:30)
[2018-06-24] MEDS ORDERED: DEXTROSE 4 GM TAB.CHEW PO PRN (01:30)
[2018-06-24] MEDS ORDERED: ENALAPRILAT 1.25 MG/ML, 2ML IVPush PRN (01:30)
[2018-06-24] MEDS ORDERED: IBUPROFEN 600 MG TABLET PO PRN (01:30)
[2018-06-24] MEDS: HEPARIN 5,000 UNITS/ML, 1ML SQ SCH ×3 (01:30→17:12)
[2018-06-24] MEDS ORDERED: LEVOFLOXACIN/PMX 750MG/150ML 150 ML IV SCH (01:30)
[2018-06-24] MEDS ORDERED: LABETALOL 5 MG/ML SYRINGE IVPush PRN (01:30)
[2018-06-24] MEDS ORDERED: BISACODYL 10 MG SUPP PR PRN (01:30)
[2018-06-24] MEDS ORDERED: SULFAMETHOXAZOLE PO SCH (02:00)
[2018-06-24] MEDS ORDERED: [UNRECOGNIZED DRUG - OTHER] PO SCH (02:00)
[2018-06-24] MEDS ORDERED: TRIMETHOPRIM PO SCH (02:00)
[2018-06-24 03:00] VITALS: BP 109/72
[2018-06-24] MEDS: INSULIN GLARGINE 100 UNITS/ML, PEN SQ-INSULIN SCH ×2 (03:28→20:48)
[2018-06-24] MEDS: SODIUM CHLORIDE 0.9% 1,000 ML IV SCH ×2 (03:28→20:32)
[2018-06-24 04:37] VITALS: BP 109/72
[2018-06-24] MEDS: ALBUTEROL SULFATE 2.5 MG/3 ML NPPB PRN ×2 (04:40→22:58)
[2018-06-24] MEDS: PANTOPROZOLE 40MG TABLET PO SCH (06:18)
[2018-06-24] MEDS: INSULIN LISPRO 100 UNITS/ML, PEN SQ-INSULIN SCH ×4 (07:00→20:47)
[2018-06-24 07:35] VITALS: BP 119/69
[2018-06-24] MEDS: MONTELUKAST 10 MG TABLET PO SCH (07:55)
[2018-06-24] MEDS: GABAPENTIN 100 MG CAPSULE PO SCH ×2 (07:55→20:31)
[2018-06-24] MEDS: NICOTINE 21 MG/24 HR PATCH.TD24 TD SCH (07:56)
[2018-06-24] MEDS: SODIUM CHLORIDE FLUSH 10ML SYR IVF SCH ×2 (07:56→20:32)
[2018-06-24] MEDS ORDERED: SALMETEROL XINAFOATE INH SCH (09:00)
[2018-06-24] MEDS ORDERED: LINEZOLID 600 MG TABLET PO SCH (09:00)
[2018-06-24] MEDS ORDERED: BENZONATATE 100 MG CAPSULE PO PRN (09:00)
[2018-06-24] MEDS: GUAIFENESIN 100 MG/5 ML, 5ML UDC PO PRN (11:55)
[2018-06-24 12:49] VITALS: BP 130/61
[2018-06-24 13:15] LABS: MICROSCOPIC AUTO
[2018-06-24 13:29] LABS: CULTURE INDICATED? YES
[2018-06-24] MEDS ORDERED: CEFTRIAXONE PMX 2GM/50ML 50 ML IV SCH (15:30)
[2018-06-24 18:54] VITALS: BP 128/69
[2018-06-24] MEDS: TRAZODONE 50MG TABLET PO SCH (20:31)
[2018-06-25 00:35] VITALS: BP 130/74
[2018-06-25] MEDS: HEPARIN 5,000 UNITS/ML, 1ML SQ SCH ×3 (01:30→16:27)
[2018-06-25] MEDS: PANTOPROZOLE 40MG TABLET PO SCH (04:27)
[2018-06-25] MEDS: GUAIFENESIN 100 MG/5 ML, 5ML UDC PO PRN ×2 (04:27→23:28)
[2018-06-25 06:01] LABS: ALBUMIN 2.9 g/dL (3.4-5.0); ANION GAP 5 mmol/L (5-15); CALCIUM 7.9 mg/dL (8.5-10.1); CHLORIDE 110 mmol/L (98-107)
[2018-06-25 06:04] LABS: BASOPHILS # (AUTO) 0.02 x10^3/uL (0-0.1); BASOPHILS % (AUTO) 1 % (0-1); EOSINOPHILS # (AUTO) 0.05 x10^3/uL (0-0.4); EOSINOPHILS % (AUTO) 1 % (1-7); LYMPHOCYTES # (AUTO) 1.16 x10^3/uL (1-3.4); LYMPHOCYTES % (AUTO) 28 % (22-44); MD NO; MEAN CORPUSCULAR HEMOGLOBIN 30.3 pg (27.0-34.8); MEAN CORPUSCULAR HGB CONC 33.1 g/dL (32.4-35.8); MEAN CORPUSCULAR VOLUME 91.6 fL (80-100); MEAN PLATELET VOLUME 8.3 fL (7.4-10.4); MONOCYTES # (AUTO) 0.44 x10^3/uL (0.2-0.8); MONOCYTES % (AUTO) 11 % (2-9); NEUTROPHILS # (AUTO) 2.48 x10^3/uL (1.8-6.8); NEUTROPHILS % (AUTO) 60 % (42-75); PLATELET COUNT 284 x10^3/uL (130-400); RED BLOOD COUNT 3.13 x10^6/uL (3.82-5.3)
[2018-06-25 06:05] LABS: ALANINE AMINOTRANSFERASE 20 U/L (12-78); ALKALINE PHOSPHATASE 137 U/L (45-117); CREATININE 0.79 mg/dL (0.55-1.02); TOTAL PROTEIN 6.4 g/dL (6.4-8.2)
[2018-06-25] MEDS: INSULIN LISPRO 100 UNITS/ML, PEN SQ-INSULIN SCH ×4 (07:00→21:00)
[2018-06-25 07:13] VITALS: BP 127/75
[2018-06-25] MEDS: SODIUM CHLORIDE FLUSH 10ML SYR IVF SCH ×2 (09:00→21:00)
[2018-06-25] MEDS: MONTELUKAST 10 MG TABLET PO SCH (09:00)
[2018-06-25] MEDS: NICOTINE 21 MG/24 HR PATCH.TD24 TD SCH (09:00)
[2018-06-25] MEDS: AZITHROMYCIN 250 MG TABLET PO SCH (09:05)
[2018-06-25] MEDS: GABAPENTIN 100 MG CAPSULE PO SCH ×2 (09:05→23:07)
[2018-06-25] MEDS: ALBUTEROL SULFATE 2.5 MG/3 ML NPPB PRN ×2 (11:27→21:46)
[2018-06-25 12:38] VITALS: BP 150/84
[2018-06-25] MEDS: CEFDINIR 300 MG CAPSULE PO SCH ×2 (14:29→23:07)
[2018-06-25 19:50] VITALS: BP 150/83
[2018-06-25] MEDS: TRAZODONE 50MG TABLET PO SCH (23:07)
[2018-06-25] MEDS: INSULIN GLARGINE 100 UNITS/ML, PEN SQ-INSULIN SCH (23:26)
[2018-06-26 01:15] VITALS: BP 148/80
[2018-06-26] MEDS: HEPARIN 5,000 UNITS/ML, 1ML SQ SCH ×3 (01:30→16:49)
[2018-06-26] MEDS: PANTOPROZOLE 40MG TABLET PO SCH (06:21)
[2018-06-26 06:46] VITALS: BP 122/84
[2018-06-26] MEDS: INSULIN LISPRO 100 UNITS/ML, PEN SQ-INSULIN SCH ×4 (07:00→20:57)
[2018-06-26] MEDS: ALBUTEROL SULFATE 2.5 MG/3 ML NPPB PRN ×3 (08:00→20:21)
[2018-06-26] MEDS: SODIUM CHLORIDE FLUSH 10ML SYR IVF SCH ×2 (08:16→20:58)
[2018-06-26] MEDS: NICOTINE 21 MG/24 HR PATCH.TD24 TD SCH (08:16)
[2018-06-26] MEDS: CEFDINIR 300 MG CAPSULE PO SCH (08:17)
[2018-06-26] MEDS: DOCUSATE 100 MG CAPSULE PO PRN ×2 (08:17→20:57)
[2018-06-26] MEDS: AZITHROMYCIN 250 MG TABLET PO SCH (08:18)
[2018-06-26] MEDS: GABAPENTIN 100 MG CAPSULE PO SCH ×2 (08:18→20:56)
[2018-06-26] MEDS: MONTELUKAST 10 MG TABLET PO SCH (08:18)
[2018-06-26] MEDS: CLINDAMYCIN 300 MG CAPSULE PO SCH ×3 (09:00→20:57)
[2018-06-26] MEDS: SULFAMETH./TRIMETHOPRIM DS 800MG/160MG TABLET PO SCH ×2 (10:38→20:57)
[2018-06-26 12:10] VITALS: BP 139/85
[2018-06-26 19:32] VITALS: BP 143/83
[2018-06-26] MEDS: INSULIN GLARGINE 100 UNITS/ML, PEN SQ-INSULIN SCH (20:57)
[2018-06-26] MEDS: TRAZODONE 50MG TABLET PO SCH (20:57)
[2018-06-27] MEDS: GUAIFENESIN 100 MG/5 ML, 5ML UDC PO PRN ×3 (00:06→20:34)
[2018-06-27] MEDS: HEPARIN 5,000 UNITS/ML, 1ML SQ SCH ×3 (01:30→17:31)
[2018-06-27 01:37] VITALS: BP 144/82
[2018-06-27] MEDS: CLINDAMYCIN 300 MG CAPSULE PO SCH ×4 (03:18→20:34)
[2018-06-27] MEDS: PANTOPROZOLE 40MG TABLET PO SCH (05:25)
[2018-06-27 06:28] VITALS: BP 135/84
[2018-06-27] MEDS: INSULIN LISPRO 100 UNITS/ML, PEN SQ-INSULIN SCH ×4 (07:00→20:35)
[2018-06-27] MEDS: ALBUTEROL SULFATE 2.5 MG/3 ML NPPB PRN ×3 (08:00→21:04)
[2018-06-27] MEDS: GABAPENTIN 100 MG CAPSULE PO SCH ×2 (09:14→20:34)
[2018-06-27] MEDS: AZITHROMYCIN 250 MG TABLET PO SCH (09:14)
[2018-06-27] MEDS: SULFAMETH./TRIMETHOPRIM DS 800MG/160MG TABLET PO SCH ×2 (09:14→20:34)
[2018-06-27] MEDS: SODIUM CHLORIDE FLUSH 10ML SYR IVF SCH ×2 (09:15→20:35)
[2018-06-27] MEDS: NICOTINE 21 MG/24 HR PATCH.TD24 TD SCH (09:15)
[2018-06-27] MEDS: MONTELUKAST 10 MG TABLET PO SCH (09:15)
[2018-06-27] MEDS ORDERED: SULF-169 PO (13:10)
[2018-06-27] MEDS ORDERED: CLIN300C8 PO ×2 (13:10→13:13)
[2018-06-27] MEDS ORDERED: AZIT250T89 PO (13:11)
[2018-06-27 13:22] VITALS: BP 148/91
[2018-06-27 18:54] VITALS: BP 147/93
[2018-06-27] MEDS: TRAZODONE 50MG TABLET PO SCH (20:34)
[2018-06-27] MEDS: DOCUSATE 100 MG CAPSULE PO PRN (20:34)
[2018-06-27] MEDS: INSULIN GLARGINE 100 UNITS/ML, PEN SQ-INSULIN SCH (21:48)
[2018-06-28] MEDS: HEPARIN 5,000 UNITS/ML, 1ML SQ SCH ×2 (01:30→08:17)
[2018-06-28 02:37] VITALS: BP 143/83
[2018-06-28] MEDS: CLINDAMYCIN 300 MG CAPSULE PO SCH ×2 (03:08→08:16)
[2018-06-28] MEDS: PANTOPROZOLE 40MG TABLET PO SCH (05:55)
[2018-06-28 06:28] VITALS: BP 124/80
[2018-06-28] MEDS: INSULIN LISPRO 100 UNITS/ML, PEN SQ-INSULIN SCH ×2 (08:10→12:08)
[2018-06-28] MEDS: MONTELUKAST 10 MG TABLET PO SCH (08:12)
[2018-06-28] MEDS: AZITHROMYCIN 250 MG TABLET PO SCH (08:12)
[2018-06-28] MEDS: SULFAMETH./TRIMETHOPRIM DS 800MG/160MG TABLET PO SCH (08:12)
[2018-06-28] MEDS: GABAPENTIN 100 MG CAPSULE PO SCH (08:12)
[2018-06-28] MEDS: SODIUM CHLORIDE FLUSH 10ML SYR IVF SCH (08:13)
[2018-06-28] MEDS: NICOTINE 21 MG/24 HR PATCH.TD24 TD SCH (08:17)
[2018-06-28] MEDS: ALBUTEROL SULFATE 2.5 MG/3 ML NPPB PRN (09:42)
[2018-06-28 12:40] VITALS: BP 137/82
[2018-06-28] MEDS ORDERED: ALBUTEROL SULFATE 2.5 MG/3 ML NPPB SCH (21:00)
== END 2018-06-28 15:49 | disposition home or self-care (01) | DRG 871 ==
LOC: ED 23:06 → EDIP 06-24 00:34 → 3NE 06-24 01:20
PROVIDERS: ADMIT Family Medicine; ATTEND Family Medicine
DX: A41.9 Sepsis, unspecified organism (principal); J15.9 Unspecified bacterial pneumonia; N17.9 Acute kidney failure, unspecified; E87.2 Acidosis; J44.0 Chronic obstructive pulmonary disease with (acute) lower respiratory infection; L03.116 Cellulitis of left lower limb; J98.11 Atelectasis; Z91.040 Latex allergy status; Z91.010 Allergy to peanuts; Z88.0 Allergy status to penicillin; Z91.018 Allergy to other foods; Y95 Nosocomial condition; E11.65 Type 2 diabetes mellitus with hyperglycemia; F17.210 Nicotine dependence, cigarettes, uncomplicated; I10 Essential (primary) hypertension; K21.9 Gastro-esophageal reflux disease without esophagitis; S20.211A Contusion of right front wall of thorax, initial encounter; W07.XXXA Fall from chair, initial encounter; Z66 Do not resuscitate; Z79.4 Long term (current) use of insulin; Z89.412 Acquired absence of left great toe; Y93.89 Activity, other specified; Y92.89 Other specified places as the place of occurrence of the external cause; Y99.8 Other external cause status; Z60.2 Problems related to living alone
CPT/HCPCS: 36415; 71045; 80048; 80053; 81001; 82040; 82962; 83605; 84484; 85025; 87040; 87086; 87400; 93005; 94640; 99285; G0378; J0456; J0696; J1956; J7613; J1815; J7030; J7050

== ENCOUNTER 2018-06-29 19:28 | Emergency (ER) | payer MEDICARE, MEDICAID ==
[~2018-06-29] VITALS: Ht 157.5 cm; Wt 95.0 kg
[~2018-06-29 19:28] MED LIST changes: +AZIT250T89 PO; +SULF-169 PO
[2018-06-29] MEDS ORDERED: ALBUTEROL/IPRATROPIUM 2.5MG/0.5MG, 3 ML NPPB ONE (20:00)
[2018-06-29] MEDS ORDERED: ALBUTEROL/IPRATROPIUM 2.5MG/0.5MG, 3 ML ONE (20:26)
[2018-06-29 20:35] LABS: BASOPHILS # (AUTO) 0.02 x10^3/uL (0-0.1); BASOPHILS % (AUTO) 0 % (0-1); EOSINOPHILS # (AUTO) 0.18 x10^3/uL (0-0.4); EOSINOPHILS % (AUTO) 3 % (1-7); LYMPHOCYTES # (AUTO) 1.13 x10^3/uL (1-3.4); LYMPHOCYTES % (AUTO) 19 % (22-44); MD NO; MEAN CORPUSCULAR HEMOGLOBIN 30.4 pg (27.0-34.8); MEAN CORPUSCULAR HGB CONC 33.5 g/dL (32.4-35.8); MEAN CORPUSCULAR VOLUME 90.6 fL (80-100); MEAN PLATELET VOLUME 8.1 fL (7.4-10.4); MONOCYTES # (AUTO) 0.34 x10^3/uL (0.2-0.8); MONOCYTES % (AUTO) 6 % (2-9); NEUTROPHILS # (AUTO) 4.44 x10^3/uL (1.8-6.8); NEUTROPHILS % (AUTO) 73 % (42-75); PLATELET COUNT 465 x10^3/uL (130-400); RED BLOOD COUNT 3.88 x10^6/uL (3.82-5.3); RED CELL DISTRIBUTION WIDTH 14.6 % (9.6-15.2)
[2018-06-29 20:39] VITALS: BP 165/90
[2018-06-29 20:45] LABS: ALANINE AMINOTRANSFERASE 21 U/L (12-78); ALBUMIN 3.4 g/dL (3.4-5.0); ANION GAP 8 mmol/L (5-15); CALCIUM 9.3 mg/dL (8.5-10.1); CHLORIDE 108 mmol/L (98-107); CREATININE 0.79 mg/dL (0.55-1.02)
[2018-06-29 20:47] LABS: ALKALINE PHOSPHATASE 238 U/L (45-117); BILIRUBIN,TOTAL 0.7 mg/dL (0.2-1.0); TOTAL PROTEIN 7.6 g/dL (6.4-8.2)
--- NOTE | 2018-06-29 21:07 | NUR ---
Wound redressed with gauze and kerlix, patient tolerated well.
--- NOTE | 2018-06-29 21:17 | NUR ---
Attempted to discuss discharge instructions with patient, patient states "you can't make me take those" in reference to antibiotics. Patient is hostile, stating "i'm getting a second opinion". Patient transfers independently to motorized wheelchair, proceeds to discharge desk in no acute distress.
== END 2018-06-29 21:23 | disposition home or self-care (01) ==
LOC: ED 20:18
DX: J43.9 Emphysema, unspecified (principal); E11.65 Type 2 diabetes mellitus with hyperglycemia; E11.42 Type 2 diabetes mellitus with diabetic polyneuropathy; F17.200 Nicotine dependence, unspecified, uncomplicated; Z89.412 Acquired absence of left great toe
CPT/HCPCS: 36415; 71045; 73630; 80053; 83880; 85025; 93005; 94640; 99284; J7620

== ENCOUNTER 2018-06-30 14:03 | Emergency (ER) | payer MEDICARE, MEDICAID ==
[~2018-06-30] VITALS: Ht 157.5 cm; Wt 95.5 kg
[2018-06-30 14:59] LABS: ANION GAP 6 mmol/L (5-15); BASOPHILS # (AUTO) 0.02 x10^3/uL (0-0.1); BASOPHILS % (AUTO) 0 % (0-1); CALCIUM 9.1 mg/dL (8.5-10.1); CHLORIDE 108 mmol/L (98-107); CREATININE 0.81 mg/dL (0.55-1.02); EOSINOPHILS # (AUTO) 0.13 x10^3/uL (0-0.4); EOSINOPHILS % (AUTO) 2 % (1-7); LYMPHOCYTES # (AUTO) 1.14 x10^3/uL (1-3.4); LYMPHOCYTES % (AUTO) 17 % (22-44); MD NO; MEAN CORPUSCULAR HEMOGLOBIN 29.5 pg (27.0-34.8); MEAN CORPUSCULAR HGB CONC 32.5 g/dL (32.4-35.8); MEAN CORPUSCULAR VOLUME 90.7 fL (80-100); MEAN PLATELET VOLUME 7.9 fL (7.4-10.4); MONOCYTES # (AUTO) 0.42 x10^3/uL (0.2-0.8); MONOCYTES % (AUTO) 6 % (2-9); NEUTROPHILS # (AUTO) 4.88 x10^3/uL (1.8-6.8); NEUTROPHILS % (AUTO) 74 % (42-75); PLATELET COUNT 472 x10^3/uL (130-400); RED BLOOD COUNT 3.91 x10^6/uL (3.82-5.3); RED CELL DISTRIBUTION WIDTH 14.8 % (9.6-15.2)
--- NOTE | 2018-06-30 16:51 | NUR ---
pt wc'd to room 38 w/ c/o cough, sob and cp w/ coughing. py states she fell out of her wc last noc and now has pain to LLE. pt resting on gurney. nadn. vss. pt declined lle boot leg for assistance for lle which were refused by patient. Pt refusing to milk pickup driver rx medications that she has been dc'd with in the past. Pt states "I'm just going to cancel my appointments. I didn't milk pickup driver my prescriptions. I don't want the medication assistance. I don't want it.".
--- NOTE | 2018-06-30 17:15 | NUR ---
REPORT GIVEN TO DARRIAN GARCIA.
[2018-06-30 18:11] VITALS: BP 140/65
== END 2018-06-30 18:15 | disposition home or self-care (01) ==
LOC: ED 17:35
DX: J18.9 Pneumonia, unspecified organism (principal); E11.9 Type 2 diabetes mellitus without complications; I10 Essential (primary) hypertension; J44.9 Chronic obstructive pulmonary disease, unspecified; Z72.9 Problem related to lifestyle, unspecified; F17.200 Nicotine dependence, unspecified, uncomplicated
CPT/HCPCS: 36415; 71045; 80048; 85025; 93005; 99284

== ENCOUNTER → 2018-07-18 | Outpatient (CLI) | payer MEDICARE, MEDICAID ==
[2018-07-18 15:39] LABS: ALANINE AMINOTRANSFERASE 51 U/L (12-78); ANION GAP 8 mmol/L (5-15); CHLORIDE 101 mmol/L (98-107); CHOLESTEROL, TOTAL 207 mg/dL (140-239); CREATININE 0.81 mg/dL (0.55-1.02); TRIGLYCERIDES 426 mg/dL (50-200)
[2018-07-18 15:41] LABS: ALKALINE PHOSPHATASE 108 U/L (45-117); BILIRUBIN,TOTAL 0.5 mg/dL (0.2-1.0); CHOL/HDL RATIO 7.1; HDL CHOL % 14 % (28-40); HDL CHOLESTEROL (DIRECT) 29 mg/dL (40-60); TOTAL PROTEIN 7.6 g/dL (6.4-8.2)
== END | disposition home or self-care (01) ==
LOC: LAB 15:08
PROVIDERS: ATTEND Nurse Practitioner Family
DX: I10 Essential (primary) hypertension (principal)
CPT/HCPCS: 36415; 80053; 80061

== ENCOUNTER 2018-09-25 00:26 | Inpatient (IN) | payer MEDICARE, MEDICAID ==
[~2018-09-25] VITALS: Ht 157.5 cm; Wt 91.7 kg
[2018-09-25] MEDS ORDERED: SODIUM CHLORIDE 0.9% 1,000ML IVBOLUS ONE ×2 (01:00→02:30)
[2018-09-25] MEDS ORDERED: CEFTRIAXONE PMX 1GM/50ML 50 ML IV ONE (01:00)
[2018-09-25] MEDS ORDERED: VANCOMYCIN 1,900 MG in SODIUM CHLORIDE 0.9% 250 ML IV ONE (01:00)
[2018-09-25] MEDS ORDERED: ACETAMINOPHEN 325 MG TABLET PO ONE (01:00)
[2018-09-25] MEDS ORDERED: VANCOMYCIN PER PHARMACY IV ONE (01:00)
--- NOTE | 2018-09-25 01:22 | NUR ---
iv access obtained. awaiting bc x 2 prior to initiation of iv abx.
[2018-09-25] MEDS ORDERED: CEFTRIAXONE PMX 1GM/50ML 50 ML ONE (01:39)
[2018-09-25] MEDS ORDERED: ACETAMINOPHEN 325 MG TABLET ONE (01:45)
[2018-09-25 02:07] LABS: BASOPHILS # (AUTO) 0.01 x10^3/uL (0-0.1); BASOPHILS % (AUTO) 0 % (0-1); EOSINOPHILS # (AUTO) 0.07 x10^3/uL (0-0.4); EOSINOPHILS % (AUTO) 1 % (1-7); LYMPHOCYTES # (AUTO) 1.26 x10^3/uL (1-3.4); LYMPHOCYTES % (AUTO) 9 % (22-44); MD NO; MEAN CORPUSCULAR HEMOGLOBIN 30.5 pg (27.0-34.8); MEAN CORPUSCULAR VOLUME 95.3 fL (80-100); MEAN PLATELET VOLUME 8.1 fL (7.4-10.4); MONOCYTES # (AUTO) 1.07 x10^3/uL (0.2-0.8); MONOCYTES % (AUTO) 7 % (2-9); NEUTROPHILS # (AUTO) 12.38 x10^3/uL (1.8-6.8); NEUTROPHILS % (AUTO) 84 % (42-75); PLATELET COUNT 388 x10^3/uL (130-400); RED BLOOD COUNT 4.21 x10^6/uL (3.82-5.3); RED CELL DISTRIBUTION WIDTH 14.1 % (9.6-15.2)
[2018-09-25 02:19] LABS: ALANINE AMINOTRANSFERASE 29 U/L (12-78); ALBUMIN 2.7 g/dL (3.4-5.0); ANION GAP 17 mmol/L (5-15); CALCIUM 9.1 mg/dL (8.5-10.1); CHLORIDE 98 mmol/L (98-107); CREATININE 0.95 mg/dL (0.55-1.02)
[2018-09-25 02:23] LABS: ALKALINE PHOSPHATASE 363 U/L (45-117); BILIRUBIN,TOTAL 0.5 mg/dL (0.2-1.0); TOTAL PROTEIN 8.2 g/dL (6.4-8.2); TROPONIN I < 0.015 ng/mL (0.000-0.045)
[2018-09-25] MEDS ORDERED: SODIUM CHLORIDE 0.9% 1,000 ML IV ONE (03:13)
--- NOTE | 2018-09-25 03:17 | NUR ---
pt resting in [facility] at this time. pt vss and updated in emr. pt denies any needs at this time. call light is within reach.
[2018-09-25] MEDS ORDERED: ONDANSETRON 2MG/ML, 2ML IVPush PRN ×2 (03:30→04:30)
--- NOTE | 2018-09-25 03:58 | NUR ---
PT SWITCHED INTO HOSPITAL BED. PT PROVIDED WARM BLANKET PER REQUEST.
[2018-09-25] MEDS: SODIUM CHLORIDE 0.9% 1,000 ML IV SCH ×3 (04:21→21:27)
[2018-09-25] MEDS ORDERED: ENALAPRILAT 1.25 MG/ML, 2ML IVPush PRN (04:30)
[2018-09-25] MEDS ORDERED: IBUPROFEN 600 MG TABLET PO PRN (04:30)
[2018-09-25] MEDS ORDERED: morphine SULFATE 10 MG/ML, 1ML IVPush PRN (04:30)
[2018-09-25] MEDS: ENOXAPARIN 40 MG/0.4 ML SQ SCH (04:30)
[2018-09-25] MEDS ORDERED: ACETAMINOPHEN 325 MG TABLET PO PRN (04:30)
[2018-09-25] MEDS ORDERED: DEXTROSE 4 GM TAB.CHEW PO PRN (04:30)
[2018-09-25] MEDS: MICONAZOLE 7 VAG. CRM 2%, 45GM VG SCH ×2 (04:30→21:29)
[2018-09-25] MEDS ORDERED: ONDANSETRON ODT 4 MG PO PRN (04:30)
[2018-09-25] MEDS ORDERED: DEXTROSE 50%, 50ML SYRINGE IVPush PRN (04:30)
[2018-09-25] MEDS: GABAPENTIN 300 MG CAPSULE PO SCH ×4 (04:30→21:26)
[2018-09-25] MEDS ORDERED: VANCOMYCIN PER PHARMACY MC PRN (04:30)
[2018-09-25] MEDS ORDERED: GLUCAGON 1 MG IM PRN (04:30)
[2018-09-25] MEDS ORDERED: ENOXAPARIN 40 MG/0.4 ML ONE (05:16)
[2018-09-25] MEDS ORDERED: GABAPENTIN 300 MG CAPSULE ONE ×2 (05:17→09:01)
[2018-09-25] MEDS ORDERED: OMEPRAZOLE 20 MG CAPSULE.DR ONE (05:18)
[2018-09-25] MEDS: NYSTATIN 500,000 UNITS/5 ML UDC PO SCH ×4 (05:25→21:27)
[2018-09-25] MEDS: OMEPRAZOLE 20 MG CAPSULE.DR PO SCH (05:25)
[2018-09-25 05:26] LABS: HEMOGLOBIN A1C 12.6 % (4.2-6.3)
[2018-09-25] MEDS ORDERED: ALBUTEROL SULFATE 2.5 MG/3 ML NPPB PRN (05:30)
--- NOTE | 2018-09-25 05:40 | NUR ---
PT MEDICATED PER JUN. PT VSS AND UPDATED IN EMR. PT DENIES ANY OTHER NEEDS AT THIS TIME. PT HAS CALL LIGHT WITHIN REACH.
--- NOTE | 2018-09-25 06:52 | NUR ---
REPORT RECEIVED FROM DARRIAN NEAL. PATIENT IN BED, RAILS UP ON MONITOR.
--- NOTE | 2018-09-25 06:54 | NUR ---
PATIENT IN BED, AND WHEN ASKED ABOUT PAIN STATES PAIN A 10 IN HER BACK. SHE IS RESTING QUIETLY AND FALLS BACK ASLEEP QUICKLY. WILL INVESTIGATE PAIN MEDICATIONS. REPOSITIONED FOR PAIN. PATIENT HAS ABCESS TO BACK LEFT UPPER. WOUND IS CLEAN, AND CREAM IS ON WOUND. PATIENT IN BED, RAILSUP. ON MONTIOR. VSS. TACHY AT 111, ROOM AIR SAT 100%. HX DIABETES.
[2018-09-25] MEDS ORDERED: OXYcodone/APAP 5/325MG TABLET ONE (07:03)
--- NOTE | 2018-09-25 07:03 | NUR ---
Babak iglesias in ED - 09/25/18 at 0703 by BAHMAN report of pt to rn Avni. all questions answered
--- NOTE | 2018-09-25 07:03 | NUR ---
report of pt to norberto Holly. all questions answered
[2018-09-25] MEDS: OXYcodone/APAP 5/325MG TABLET PO PRN (07:05)
--- NOTE | 2018-09-25 07:05 | NUR ---
MEDICATED PATIENT WITH PRN PERCOCET FOR PAIN. SHE STATES PAIN A 10 BUT SHE IS REFUSING MORHPINE AND REQUESTING PERCOCET AND STATES THAT IS WHAT WORKS FOR HER. WILL GIVE ONE PERCOCET AT THIS TIME AND REASSESS IF FURTHER INTERVENTIONS ARE NEEDED. PATIENT REPOSITIONED FOR PAIN. RAILS UP, ON MONITOR.
[2018-09-25] MEDS: SODIUM CHLORIDE FLUSH 10ML SYR IVF SCH ×2 (07:09→21:27)
[2018-09-25] MEDS ORDERED: INSULIN LISPRO 100 UNITS/ML, PEN ONE (07:12)
[2018-09-25] MEDS: INSULIN REGULAR 100 UNITS/ML, 3ML VIAL SQ-INSULIN SCH ×4 (07:14→21:28)
--- NOTE | 2018-09-25 07:41 | NUR ---
patient appears comfortable and asleep. flacc pain score 0. will continue to monitor. continue to await a room assigment for patient's admission. she is on hospital bed.
--- NOTE | 2018-09-25 08:48 | NUR ---
.PATIENT IS VERY EMOTIONAL. TRYING TO GET HER COMFORTABLE. SHE STATES SHE CAN NOT OFFER URINE SAMPLE AT THIS TIME. SHE DOESN'T HAVE TO GO. PLACED ON TWO LITERS NC FOR 88% SAT WHEN SHE IS ASLEEP. SHE WAKES UP IN PAIN, AND THEN QUICKLY GOES TO SLEEP. AWAITING FOR ROOM ASSIGNMENT
--- NOTE | 2018-09-25 09:00 | NUR ---
PATIENT STILL REFUSES BREAKFAST. PLACED IN ROOM BUT SHE REFUSES TO EAT. GOT HER CHAPSTICK REQUESTED FOR HER DRY LIPS. SHE STILL CAN'T VOID.
[2018-09-25] MEDS ORDERED: SENNA/DOCUSATE TABLET ONE (09:02)
[2018-09-25] MEDS: SENNA/DOCUSATE TABLET PO SCH (09:03)
--- NOTE | 2018-09-25 09:03 | NUR ---
PATIENT REFUSED WARM COMORESS STATIMG IT IS ALREADY HOT. ENCOURAGED. REFUSED Addendum: 09/25/18 at 0910 by DEMETRICE patient refused warm compress stating it feels too hot.
--- NOTE | 2018-09-25 10:24 | NUR ---
HELPING PATIENT TO BATHROOMM, WILL COLLECT URINE SAMPLE FOR LAB. PATIENT CONTINUES TO MOAN IN PAIN. WILL GIVE PAIN MEDS TO HELP. SHE CONTINUES TO AWAIT A ROOM
[2018-09-25 10:50] LABS: MICROSCOPIC INDICATED
[2018-09-25 10:57] LABS: CULTURE INDICATED? NO
[2018-09-25] MEDS ORDERED: INSULIN SINGLE DOSE, ER SQ-INSULIN ONE (11:21)
--- NOTE | 2018-09-25 11:39 | NUR ---
patient given lunch tray. she is still refusing warm compress. still waiting for inpatient room.
[2018-09-25 12:10] LABS: ANION GAP 14 mmol/L (5-15); CALCIUM 8.6 mg/dL (8.5-10.1); CHLORIDE 105 mmol/L (98-107)
[2018-09-25 12:12] LABS: CREATININE 0.82 mg/dL (0.55-1.02)
--- NOTE | 2018-09-25 12:43 | NUR ---
sleeping at this time.
--- NOTE | 2018-09-25 13:13 | NUR ---
patient resting quietly. on monitor. awaiting room. no complaints of pain.
--- NOTE | 2018-09-25 13:52 | NUR ---
norman scheduled for surgery back at 15:00. npo.
--- NOTE | 2018-09-25 14:02 | NUR ---
REPORT CALLED TO NATE AND PATIENT TO GO TO 365. SBAR
--- NOTE | 2018-09-25 14:04 | NUR ---
patient report called to room 365 upstairs, sylvia. umm
--- NOTE | 2018-09-25 14:21 | NUR ---
REPORT GIVEN TO PRE SURGERY
[2018-09-25] MEDS ORDERED: PHARMACOKINETIC MONITORING MC PRN (14:30)
--- NOTE | 2018-09-25 14:33 | NUR ---
UNDRESSED FOR SURGERY. STARTED WHO FORM
[2018-09-25] MEDS ORDERED: FENTANYL PF 100 MCG/2ML ONE ×2 (14:46→17:53)
[2018-09-25] MEDS ORDERED: hydrALAzine 20 MG/ML, 1ML IV PRN ×2 (15:00→18:00)
[2018-09-25] MEDS ORDERED: PROMETHAZINE 25 MG/ML, 1ML IV PRN (15:00)
[2018-09-25] MEDS ORDERED: FENTANYL PF 100 MCG/2ML IV PRN (15:00)
[2018-09-25] MEDS ORDERED: PROCHLORPERAZINE 5 MG/ML, 2ML IV PRN (15:00)
[2018-09-25] MEDS ORDERED: METOPROLOL 1 MG/ML, 5ML IV PRN ×2 (15:00→18:00)
[2018-09-25] MEDS ORDERED: DIPHENHYDRAMINE 50 MG/ML, 1ML IVPush PRN (15:00)
[2018-09-25] MEDS ORDERED: HYDROmorphone 2 MG/ML, 1ML IVPush PRN ×2 (15:00→21:30)
[2018-09-25] MEDS ORDERED: LABETALOL 5MG/ML, 20ML IV PRN ×2 (15:00→18:00)
[2018-09-25] MEDS ORDERED: OXYcodone 5 MG/5 ML ORAL.SOL UDC PO PRN ×2 (15:00→18:00)
[2018-09-25] MEDS ORDERED: MEPERIDINE/PF 25MG/0.5ML IVPush PRN ×2 (15:00→18:00)
[2018-09-25] MEDS ORDERED: HALOPERIDOL 5 MG/ML IV PRN (15:00)
[2018-09-25] MEDS ORDERED: PROPOFOL 10 MG/ML, 20ML ONE (16:45)
[2018-09-25] MEDS ORDERED: SUCCINYLCHOLINE 20 MG/ML, 10ML ONE (16:45)
[2018-09-25] MEDS ORDERED: FENTANYL PF 250 MCG/5ML ONE (17:01)
[2018-09-25] MEDS ORDERED: OXYcodone 5 MG/5 ML ORAL.SOL UDC ONE (17:53)
[2018-09-25] MEDS ORDERED: HYDROmorphone 2 MG/ML, 1ML ONE (17:53)
[2018-09-25] MEDS: HYDROmorphone 2 MG/ML, 1ML IVPush PRN ×3 (18:03→18:19)
[2018-09-25] MEDS: FENTANYL PF 100 MCG/2ML IV PRN ×2 (18:03→18:09)
[2018-09-25] MEDS ORDERED: MEPERIDINE/PF 25MG/ML,1ML ONE (18:21)
[2018-09-25 19:14] VITALS: BP 112/63
[2018-09-25] MEDS ORDERED: INSULIN GLARGINE 100 UNITS/ML, PEN SQ-INSULIN SCH (21:00)
[2018-09-25] MEDS: MONTELUKAST 10 MG TABLET PO SCH (21:26)
[2018-09-25] MEDS: VANCOMYCIN 1,700 MG in SODIUM CHLORIDE 0.9% 250 ML IV SCH (21:27)
[2018-09-25] MEDS ORDERED: ONDANSETRON 2MG/ML, 2ML IV PRN (21:30)
[2018-09-26 01:16] VITALS: BP 113/75
[2018-09-26 05:13] LABS: BASOPHILS # (AUTO) 0.03 x10^3/uL (0-0.1); BASOPHILS % (AUTO) 0 % (0-1); EOSINOPHILS # (AUTO) 0.11 x10^3/uL (0-0.4); EOSINOPHILS % (AUTO) 1 % (1-7); LYMPHOCYTES # (AUTO) 1.37 x10^3/uL (1-3.4); LYMPHOCYTES % (AUTO) 14 % (22-44); MD NO; MEAN CORPUSCULAR HEMOGLOBIN 31.2 pg (27.0-34.8); MEAN CORPUSCULAR HGB CONC 32.8 g/dL (32.4-35.8); MEAN CORPUSCULAR VOLUME 95.1 fL (80-100); MEAN PLATELET VOLUME 8.1 fL (7.4-10.4); MONOCYTES # (AUTO) 0.75 x10^3/uL (0.2-0.8); MONOCYTES % (AUTO) 8 % (2-9); NEUTROPHILS # (AUTO) 7.56 x10^3/uL (1.8-6.8); NEUTROPHILS % (AUTO) 77 % (42-75); PLATELET COUNT 322 x10^3/uL (130-400); RED BLOOD COUNT 3.32 x10^6/uL (3.82-5.3); RED CELL DISTRIBUTION WIDTH 13.8 % (9.6-15.2)
[2018-09-26 05:22] LABS: CHLORIDE 106 mmol/L (98-107)
[2018-09-26 05:25] LABS: ANION GAP 11 mmol/L (5-15); CALCIUM 8.3 mg/dL (8.5-10.1); CREATININE 0.77 mg/dL (0.55-1.02)
[2018-09-26] MEDS: NYSTATIN 500,000 UNITS/5 ML UDC PO SCH ×4 (05:58→21:44)
[2018-09-26] MEDS: ENOXAPARIN 40 MG/0.4 ML SQ SCH ×2 (05:58→06:00)
[2018-09-26] MEDS: OMEPRAZOLE 20 MG CAPSULE.DR PO SCH (05:59)
[2018-09-26] MEDS: OXYcodone/APAP 5/325MG TABLET PO PRN ×3 (06:02→21:45)
[2018-09-26] MEDS: SODIUM CHLORIDE 0.9% 1,000 ML IV SCH ×2 (06:26→13:15)
[2018-09-26 07:06] VITALS: BP 111/70
[2018-09-26] MEDS: INSULIN REGULAR 100 UNITS/ML, 3ML VIAL SQ-INSULIN SCH ×4 (08:12→21:44)
[2018-09-26] MEDS: SENNA/DOCUSATE TABLET PO SCH (08:12)
[2018-09-26] MEDS: SODIUM CHLORIDE FLUSH 10ML SYR IVF SCH ×2 (08:13→21:46)
[2018-09-26] MEDS: GABAPENTIN 300 MG CAPSULE PO SCH ×3 (08:13→21:46)
[2018-09-26] MEDS: VANCOMYCIN 1,700 MG in SODIUM CHLORIDE 0.9% 250 ML IV SCH (13:15)
[2018-09-26 14:54] VITALS: BP 132/74
[2018-09-26 15:55] VITALS: BP 135/68
[2018-09-26 19:34] VITALS: BP 146/88
[2018-09-26] MEDS ORDERED: GABAPENTIN 100 MG CAPSULE ONE (21:34)
[2018-09-26] MEDS: INSULIN GLARGINE 100 UNITS/ML, PEN SQ-INSULIN SCH (21:45)
[2018-09-26] MEDS: MONTELUKAST 10 MG TABLET PO SCH (21:45)
[2018-09-26] MEDS: MICONAZOLE 7 VAG. CRM 2%, 45GM VG SCH (21:48)
[2018-09-26] MEDS: TRAZODONE 50MG TABLET PO PRN (23:39)
[2018-09-27 01:29] VITALS: BP 134/82
[2018-09-27] MEDS: NYSTATIN 500,000 UNITS/5 ML UDC PO SCH ×4 (05:27→21:31)
[2018-09-27] MEDS: ENOXAPARIN 40 MG/0.4 ML SQ SCH (05:27)
[2018-09-27] MEDS: SODIUM CHLORIDE 0.9% 1,000 ML IV SCH (05:28)
[2018-09-27] MEDS: OMEPRAZOLE 20 MG CAPSULE.DR PO SCH (05:28)
[2018-09-27] MEDS: OXYcodone/APAP 5/325MG TABLET PO PRN ×2 (05:39→21:31)
[2018-09-27] MEDS: INSULIN REGULAR 100 UNITS/ML, 3ML VIAL SQ-INSULIN SCH ×4 (08:11→21:32)
[2018-09-27] MEDS: SODIUM CHLORIDE FLUSH 10ML SYR IVF SCH ×2 (08:11→21:31)
[2018-09-27] MEDS: GABAPENTIN 300 MG CAPSULE PO SCH ×3 (08:11→21:31)
[2018-09-27] MEDS: SENNA/DOCUSATE TABLET PO SCH ×2 (08:11→08:14)
[2018-09-27 08:53] VITALS: BP 159/84
[2018-09-27] MEDS: VANCOMYCIN 1,700 MG in SODIUM CHLORIDE 0.9% 250 ML IV SCH (09:49)
[2018-09-27] MEDS ORDERED: BISACODYL 10 MG SUPP PR PRN (12:30)
[2018-09-27] MEDS ORDERED: POLYETHYLENE GLYCOL 17 GM PACKET NG PRN (12:30)
[2018-09-27] MEDS: DOCUSATE 100 MG CAPSULE PO SCH (12:55)
[2018-09-27 15:00] VITALS: BP 135/67
[2018-09-27] MEDS ORDERED: HYDROmorphone 2 MG/ML, 1ML IVPush ONE (16:30)
[2018-09-27] MEDS ORDERED: LORazepam 2 MG/ML, 1ML IVPush ONE (16:30)
[2018-09-27] MEDS: SULFAMETH./TRIMETHOPRIM 10 ML in DEXTROSE 5% 250 ML IV SCH (17:18)
[2018-09-27] MEDS ORDERED: VANCOMYCIN 1,700 MG in SODIUM CHLORIDE 0.9% 250 ML IV SCH (18:00)
[2018-09-27 18:45] VITALS: BP 137/70
[2018-09-27] MEDS: MONTELUKAST 10 MG TABLET PO SCH (21:31)
[2018-09-27] MEDS: MICONAZOLE 7 VAG. CRM 2%, 45GM VG SCH (21:31)
[2018-09-27] MEDS: INSULIN GLARGINE 100 UNITS/ML, PEN SQ-INSULIN SCH (21:33)
[2018-09-27] MEDS: TRAZODONE 50MG TABLET PO PRN (23:18)
[2018-09-28 01:49] VITALS: BP 120/69
[2018-09-28] MEDS: NYSTATIN 500,000 UNITS/5 ML UDC PO SCH ×4 (04:57→19:51)
[2018-09-28] MEDS: ENOXAPARIN 40 MG/0.4 ML SQ SCH (04:57)
[2018-09-28] MEDS: OMEPRAZOLE 20 MG CAPSULE.DR PO SCH (05:23)
[2018-09-28] MEDS: SULFAMETH./TRIMETHOPRIM 10 ML in DEXTROSE 5% 250 ML IV SCH (05:23)
[2018-09-28] MEDS: OXYcodone/APAP 5/325MG TABLET PO PRN ×3 (05:36→16:37)
[2018-09-28 06:00] LABS: BASOPHILS # (AUTO) 0.02 x10^3/uL (0-0.1); BASOPHILS % (AUTO) 0 % (0-1); EOSINOPHILS # (AUTO) 0.19 x10^3/uL (0-0.4); EOSINOPHILS % (AUTO) 5 % (1-7); LYMPHOCYTES # (AUTO) 1.29 x10^3/uL (1-3.4); LYMPHOCYTES % (AUTO) 30 % (22-44); MD NO; MEAN CORPUSCULAR HEMOGLOBIN 31.3 pg (27.0-34.8); MEAN CORPUSCULAR HGB CONC 33.2 g/dL (32.4-35.8); MEAN CORPUSCULAR VOLUME 94.3 fL (80-100); MEAN PLATELET VOLUME 7.8 fL (7.4-10.4); MONOCYTES # (AUTO) 0.44 x10^3/uL (0.2-0.8); MONOCYTES % (AUTO) 10 % (2-9); NEUTROPHILS # (AUTO) 2.37 x10^3/uL (1.8-6.8); NEUTROPHILS % (AUTO) 55 % (42-75); PLATELET COUNT 345 x10^3/uL (130-400); RED BLOOD COUNT 3.24 x10^6/uL (3.82-5.3); RED CELL DISTRIBUTION WIDTH 14.2 % (9.6-15.2)
[2018-09-28 06:07] LABS: CHLORIDE 110 mmol/L (98-107)
[2018-09-28 06:13] LABS: ANION GAP 9 mmol/L (5-15); CALCIUM 8.8 mg/dL (8.5-10.1); CREATININE 0.56 mg/dL (0.55-1.02)
[2018-09-28 07:09] VITALS: BP 143/101
[2018-09-28] MEDS: SENNA/DOCUSATE TABLET PO SCH (08:46)
[2018-09-28] MEDS: GABAPENTIN 300 MG CAPSULE PO SCH ×3 (08:46→19:49)
[2018-09-28] MEDS: DOCUSATE 100 MG CAPSULE PO SCH (08:46)
[2018-09-28] MEDS: INSULIN REGULAR 100 UNITS/ML, 3ML VIAL SQ-INSULIN SCH ×4 (08:48→21:07)
[2018-09-28] MEDS: SODIUM CHLORIDE FLUSH 10ML SYR IVF SCH ×2 (09:00→19:50)
[2018-09-28] MEDS ORDERED: POTASSIUM CHLORIDE 20 MEQ TAB.ER.PRT PO ONE (12:00)
[2018-09-28] MEDS ORDERED: LORazepam 2 MG/ML, 1ML IVPush PRN (12:30)
[2018-09-28 14:30] VITALS: BP 127/81
[2018-09-28 19:31] VITALS: BP 148/94
[2018-09-28] MEDS: SULFAMETH./TRIMETHOPRIM DS 800MG/160MG TABLET PO SCH (19:48)
[2018-09-28] MEDS: MONTELUKAST 10 MG TABLET PO SCH (19:48)
[2018-09-28] MEDS: MICONAZOLE 7 VAG. CRM 2%, 45GM VG SCH (19:51)
[2018-09-28] MEDS: INSULIN GLARGINE 100 UNITS/ML, PEN SQ-INSULIN SCH (21:08)
[2018-09-29 01:23] VITALS: BP 146/99
[2018-09-29] MEDS: ENOXAPARIN 40 MG/0.4 ML SQ SCH (06:00)
[2018-09-29] MEDS: NYSTATIN 500,000 UNITS/5 ML UDC PO SCH ×4 (06:00→21:00)
[2018-09-29] MEDS: OMEPRAZOLE 20 MG CAPSULE.DR PO SCH (06:10)
[2018-09-29] MEDS: OXYcodone/APAP 5/325MG TABLET PO PRN ×4 (06:10→21:11)
[2018-09-29] MEDS ORDERED: POTASSIUM CHLORIDE 20 MEQ TAB.ER.PRT PO ONE (07:30)
[2018-09-29] MEDS: INSULIN REGULAR 100 UNITS/ML, 3ML VIAL SQ-INSULIN SCH ×4 (08:06→21:10)
[2018-09-29] MEDS: GABAPENTIN 300 MG CAPSULE PO SCH ×3 (08:07→20:56)
[2018-09-29] MEDS: SODIUM CHLORIDE FLUSH 10ML SYR IVF SCH ×2 (08:07→21:11)
[2018-09-29] MEDS: DOCUSATE 100 MG CAPSULE PO SCH (08:07)
[2018-09-29] MEDS: SENNA/DOCUSATE TABLET PO SCH (08:07)
[2018-09-29] MEDS: SULFAMETH./TRIMETHOPRIM DS 800MG/160MG TABLET PO SCH ×2 (08:07→20:56)
[2018-09-29 08:12] LABS: BASOPHILS # (AUTO) 0.02 x10^3/uL (0-0.1); BASOPHILS % (AUTO) 0 % (0-1); EOSINOPHILS # (AUTO) 0.13 x10^3/uL (0-0.4); EOSINOPHILS % (AUTO) 3 % (1-7); LYMPHOCYTES # (AUTO) 1.28 x10^3/uL (1-3.4); LYMPHOCYTES % (AUTO) 26 % (22-44); MD NO; MEAN CORPUSCULAR HEMOGLOBIN 30.1 pg (27.0-34.8); MEAN CORPUSCULAR HGB CONC 32.5 g/dL (32.4-35.8); MEAN CORPUSCULAR VOLUME 92.8 fL (80-100); MEAN PLATELET VOLUME 7.5 fL (7.4-10.4); MONOCYTES # (AUTO) 0.45 x10^3/uL (0.2-0.8); MONOCYTES % (AUTO) 9 % (2-9); NEUTROPHILS # (AUTO) 3.02 x10^3/uL (1.8-6.8); NEUTROPHILS % (AUTO) 62 % (42-75); PLATELET COUNT 354 x10^3/uL (130-400); RED BLOOD COUNT 3.36 x10^6/uL (3.82-5.3)
[2018-09-29 08:20] LABS: ANION GAP 7 mmol/L (5-15); CALCIUM 8.5 mg/dL (8.5-10.1); CHLORIDE 108 mmol/L (98-107)
[2018-09-29 09:27] VITALS: BP 145/84
[2018-09-29 12:11] VITALS: BP 160/87
[2018-09-29 19:48] VITALS: BP 167/86
[2018-09-29] MEDS: MONTELUKAST 10 MG TABLET PO SCH (20:56)
[2018-09-29] MEDS: MICONAZOLE 7 VAG. CRM 2%, 45GM VG SCH (21:00)
[2018-09-29] MEDS: INSULIN GLARGINE 100 UNITS/ML, PEN SQ-INSULIN SCH (21:11)
[2018-09-30 01:16] VITALS: BP 117/78
[2018-09-30] MEDS: NYSTATIN 500,000 UNITS/5 ML UDC PO SCH ×4 (05:38→20:08)
[2018-09-30] MEDS: ENOXAPARIN 40 MG/0.4 ML SQ SCH (05:39)
[2018-09-30] MEDS: OMEPRAZOLE 20 MG CAPSULE.DR PO SCH (05:43)
[2018-09-30] MEDS: OXYcodone/APAP 5/325MG TABLET PO PRN ×4 (05:44→23:20)
[2018-09-30 07:05] VITALS: BP 128/80
[2018-09-30 07:57] LABS: ANION GAP 5 mmol/L (5-15); CALCIUM 8.3 mg/dL (8.5-10.1); CHLORIDE 109 mmol/L (98-107); CREATININE 0.56 mg/dL (0.55-1.02)
[2018-09-30] MEDS: INSULIN REGULAR 100 UNITS/ML, 3ML VIAL SQ-INSULIN SCH ×4 (08:11→20:05)
[2018-09-30] MEDS: SODIUM CHLORIDE FLUSH 10ML SYR IVF SCH ×2 (09:00→21:00)
[2018-09-30] MEDS: LINAGLIPTIN 5 MG TAB PO SCH (09:01)
[2018-09-30] MEDS: SENNA/DOCUSATE TABLET PO SCH (09:01)
[2018-09-30] MEDS: SULFAMETH./TRIMETHOPRIM DS 800MG/160MG TABLET PO SCH ×2 (09:01→20:08)
[2018-09-30] MEDS: DOCUSATE 100 MG CAPSULE PO SCH (09:01)
[2018-09-30] MEDS: GABAPENTIN 300 MG CAPSULE PO SCH ×3 (09:01→20:07)
[2018-09-30 12:20] VITALS: BP 137/86
[2018-09-30 18:49] VITALS: BP 147/90
[2018-09-30] MEDS: INSULIN GLARGINE 100 UNITS/ML, PEN SQ-INSULIN SCH (20:07)
[2018-09-30] MEDS: MICONAZOLE 7 VAG. CRM 2%, 45GM VG SCH (20:08)
[2018-09-30] MEDS: MONTELUKAST 10 MG TABLET PO SCH (20:08)
[2018-10-01 01:09] VITALS: BP 122/78
[2018-10-01] MEDS: TRAZODONE 50MG TABLET PO PRN ×2 (01:23→23:18)
[2018-10-01] MEDS: ENOXAPARIN 40 MG/0.4 ML SQ SCH (06:00)
[2018-10-01] MEDS: NYSTATIN 500,000 UNITS/5 ML UDC PO SCH ×4 (06:00→23:05)
[2018-10-01] MEDS: OXYcodone/APAP 5/325MG TABLET PO PRN ×4 (06:08→23:17)
[2018-10-01] MEDS: OMEPRAZOLE 20 MG CAPSULE.DR PO SCH (06:08)
[2018-10-01 06:32] VITALS: BP 125/81
[2018-10-01] MEDS: INSULIN REGULAR 100 UNITS/ML, 3ML VIAL SQ-INSULIN SCH ×4 (07:00→21:00)
[2018-10-01] MEDS: GABAPENTIN 300 MG CAPSULE PO SCH ×3 (08:14→23:17)
[2018-10-01] MEDS: LINAGLIPTIN 5 MG TAB PO SCH (08:14)
[2018-10-01] MEDS: SULFAMETH./TRIMETHOPRIM DS 800MG/160MG TABLET PO SCH ×2 (08:14→23:18)
[2018-10-01] MEDS: SODIUM CHLORIDE FLUSH 10ML SYR IVF SCH ×2 (08:14→23:22)
[2018-10-01] MEDS: SENNA/DOCUSATE TABLET PO SCH (08:15)
[2018-10-01 08:30] LABS: ANION GAP 3 mmol/L (5-15); CALCIUM 8.7 mg/dL (8.5-10.1); CHLORIDE 109 mmol/L (98-107); CREATININE 0.56 mg/dL (0.55-1.02)
[2018-10-01] MEDS ORDERED: LINA5TAB PO (11:50)
[2018-10-01] MEDS ORDERED: INSU100V8 SQ (11:50)
[2018-10-01] MEDS ORDERED: SULF-169 PO (11:53)
[2018-10-01 12:15] VITALS: BP 111/70
[2018-10-01 19:09] VITALS: BP 147/84
[2018-10-01] MEDS: MONTELUKAST 10 MG TABLET PO SCH (23:17)
[2018-10-01] MEDS: MICONAZOLE 7 VAG. CRM 2%, 45GM VG SCH (23:22)
[2018-10-01] MEDS: INSULIN GLARGINE 100 UNITS/ML, PEN SQ-INSULIN SCH (23:23)
[2018-10-02 01:41] VITALS: BP 171/89
[2018-10-02] MEDS: NYSTATIN 500,000 UNITS/5 ML UDC PO SCH ×4 (05:31→20:32)
[2018-10-02] MEDS: ENOXAPARIN 40 MG/0.4 ML SQ SCH (05:31)
[2018-10-02] MEDS: OMEPRAZOLE 20 MG CAPSULE.DR PO SCH (06:00)
[2018-10-02 06:45] VITALS: BP 136/76
[2018-10-02] MEDS: GABAPENTIN 300 MG CAPSULE PO SCH ×3 (08:05→20:32)
[2018-10-02] MEDS: SODIUM CHLORIDE FLUSH 10ML SYR IVF SCH ×2 (08:05→20:31)
[2018-10-02] MEDS: INSULIN REGULAR 100 UNITS/ML, 3ML VIAL SQ-INSULIN SCH ×4 (08:05→20:31)
[2018-10-02] MEDS: SENNA/DOCUSATE TABLET PO SCH (08:05)
[2018-10-02] MEDS: LINAGLIPTIN 5 MG TAB PO SCH (08:06)
[2018-10-02] MEDS: SULFAMETH./TRIMETHOPRIM DS 800MG/160MG TABLET PO SCH ×2 (08:06→20:31)
[2018-10-02] MEDS: SERTRALINE 50MG TABLET PO SCH ×2 (08:06→08:08)
[2018-10-02 12:10] VITALS: BP 126/74
[2018-10-02] MEDS: OXYcodone/APAP 7.5/325MG TABLET PO PRN (18:54)
[2018-10-02 19:23] VITALS: BP 152/82
[2018-10-02] MEDS: MICONAZOLE 7 VAG. CRM 2%, 45GM VG SCH (20:23)
[2018-10-02] MEDS: INSULIN GLARGINE 100 UNITS/ML, PEN SQ-INSULIN SCH (20:30)
[2018-10-02] MEDS: MONTELUKAST 10 MG TABLET PO SCH (20:32)
[2018-10-03 01:53] VITALS: BP 120/84
[2018-10-03] MEDS: ENOXAPARIN 40 MG/0.4 ML SQ SCH (05:23)
[2018-10-03] MEDS: NYSTATIN 500,000 UNITS/5 ML UDC PO SCH ×4 (05:23→20:51)
[2018-10-03] MEDS: OMEPRAZOLE 20 MG CAPSULE.DR PO SCH (05:23)
[2018-10-03 07:20] VITALS: BP 138/79
[2018-10-03] MEDS: INSULIN REGULAR 100 UNITS/ML, 3ML VIAL SQ-INSULIN SCH ×4 (08:27→20:49)
[2018-10-03] MEDS: LINAGLIPTIN 5 MG TAB PO SCH (08:28)
[2018-10-03] MEDS: SODIUM CHLORIDE FLUSH 10ML SYR IVF SCH ×2 (08:28→20:49)
[2018-10-03] MEDS: SENNA/DOCUSATE TABLET PO SCH (08:28)
[2018-10-03] MEDS: GABAPENTIN 300 MG CAPSULE PO SCH ×3 (08:28→20:49)
[2018-10-03] MEDS: SERTRALINE 50MG TABLET PO SCH (08:28)
[2018-10-03] MEDS: SULFAMETH./TRIMETHOPRIM DS 800MG/160MG TABLET PO SCH ×2 (08:28→20:49)
[2018-10-03] MEDS: OXYcodone/APAP 7.5/325MG TABLET PO PRN ×2 (11:34→20:58)
[2018-10-03 12:24] VITALS: BP 121/75
[2018-10-03 19:34] VITALS: BP 163/98
[2018-10-03] MEDS: MONTELUKAST 10 MG TABLET PO SCH (20:49)
[2018-10-03] MEDS: MICONAZOLE 7 VAG. CRM 2%, 45GM VG SCH (20:51)
[2018-10-03] MEDS: INSULIN GLARGINE 100 UNITS/ML, PEN SQ-INSULIN SCH (21:20)
[2018-10-04 01:05] VITALS: BP 152/72
[2018-10-04] MEDS: NYSTATIN 500,000 UNITS/5 ML UDC PO SCH (05:15)
[2018-10-04] MEDS: OMEPRAZOLE 20 MG CAPSULE.DR PO SCH (05:15)
[2018-10-04] MEDS: ENOXAPARIN 40 MG/0.4 ML SQ SCH (05:15)
[2018-10-04 06:34] VITALS: BP 143/84
[2018-10-04] MEDS: INSULIN REGULAR 100 UNITS/ML, 3ML VIAL SQ-INSULIN SCH (07:00)
[2018-10-04] MEDS: SERTRALINE 50MG TABLET PO SCH ×2 (08:24→08:33)
[2018-10-04] MEDS: LINAGLIPTIN 5 MG TAB PO SCH ×2 (08:24→08:29)
[2018-10-04] MEDS: SENNA/DOCUSATE TABLET PO SCH (08:24)
[2018-10-04] MEDS: SULFAMETH./TRIMETHOPRIM DS 800MG/160MG TABLET PO SCH ×2 (08:24→08:33)
[2018-10-04] MEDS: GABAPENTIN 300 MG CAPSULE PO SCH ×2 (08:24→08:32)
[2018-10-04] MEDS: SODIUM CHLORIDE FLUSH 10ML SYR IVF SCH (08:34)
[2018-10-04] MEDS: OXYcodone/APAP 7.5/325MG TABLET PO PRN (08:59)
== END 2018-10-04 11:30 | disposition home or self-care (01) | DRG 854 ==
LOC: ED 00:49 → EDIP 03:13 → 3NE 14:02 → DCLOUNGE 10-04 11:04
PROVIDERS: ADMIT Family Medicine; ATTEND Family Medicine
PROC: 0J970ZZ Drainage of Back Subcutaneous Tissue and Fascia, Open Approach (ICD-10-PCS; principal; 2018-09-25 15:00)
DX: A41.9 Sepsis, unspecified organism (principal); L02.212 Cutaneous abscess of back [any part, except buttock and flank]; E87.1 Hypo-osmolality and hyponatremia; L03.312 Cellulitis of back [any part except buttock and flank]; K62.5 Hemorrhage of anus and rectum; E44.1 Mild protein-calorie malnutrition; E66.2 Morbid (severe) obesity with alveolar hypoventilation; Z91.018 Allergy to other foods; Z88.0 Allergy status to penicillin; Z88.8 Allergy status to other drugs, medicaments and biological substances; J44.9 Chronic obstructive pulmonary disease, unspecified; K21.9 Gastro-esophageal reflux disease without esophagitis; E11.40 Type 2 diabetes mellitus with diabetic neuropathy, unspecified; E11.51 Type 2 diabetes mellitus with diabetic peripheral angiopathy without gangrene; Z68.37 Body mass index [BMI] 37.0-37.9, adult; E78.5 Hyperlipidemia, unspecified; F17.200 Nicotine dependence, unspecified, uncomplicated; F32.9 Major depressive disorder, single episode, unspecified; F41.9 Anxiety disorder, unspecified; G47.00 Insomnia, unspecified; G89.4 Chronic pain syndrome; I10 Essential (primary) hypertension; K59.00 Constipation, unspecified; Z59.0 Homelessness; Z63.8 Other specified problems related to primary support group; Z79.4 Long term (current) use of insulin; Z79.891 Long term (current) use of opiate analgesic; Z89.412 Acquired absence of left great toe; Z90.710 Acquired absence of both cervix and uterus; Z91.14 Patient's other noncompliance with medication regimen; B37.3 Candidiasis of vulva and vagina; Z83.3 Family history of diabetes mellitus; Z82.5 Family history of asthma and other chronic lower respiratory diseases
CPT/HCPCS: 36415; 71045; 76536; 80048; 80053; 80202; 81001; 82962; 83036; 83605; 83735; 84145; 84484; 85025; 87040; 87070; 87075; 87077; 87081; 87186; 87205; 93005; 96365; 96366; 96368; 96375; G0378; J0696; J1170; J1650; J1815; J2175; J2704; J3010; J3370; J7060; J0330; J2060; J7030; J7050

== ENCOUNTER 2018-10-07 00:31 | Emergency (ER) | payer MEDICARE, MEDICAID ==
[~2018-10-07] VITALS: Ht 157.5 cm; Wt 95.0 kg
[~2018-10-07 00:31] MED LIST changes: +LINA5TAB PO
--- NOTE | 2018-10-07 00:55 | NUR ---
first contact with pt. pt had back surgery ( removal of tumor or mass ) at September 24 at [facility] . pt discharged 10/04/18 but pt felt not doing well at home with fever and chills. pt is w/c bound. hx DM. left toe amputation . afebrile bp 161/110 at triage. pt's aox4. resps even and unlabored. bp/spo2 monitors in place. call light within reach. provided warm blancket.
[2018-10-07] MEDS ORDERED: ONDANSETRON 2MG/ML, 2ML ONE (01:18)
[2018-10-07] MEDS ORDERED: MORPHINE SULFATE 4 MG/ML, 1ML ONE (01:18)
[2018-10-07] MEDS ORDERED: ONDANSETRON 2MG/ML, 2ML IVPush ONE (01:30)
[2018-10-07] MEDS ORDERED: MORPHINE SULFATE 4 MG/ML, 1ML IVPush PRN (01:30)
[2018-10-07 01:41] LABS: BASOPHILS # (AUTO) 0.01 x10^3/uL (0-0.1); BASOPHILS % (AUTO) 0 % (0-1); EOSINOPHILS # (AUTO) 0.08 x10^3/uL (0-0.4); EOSINOPHILS % (AUTO) 2 % (1-7); LYMPHOCYTES # (AUTO) 1.43 x10^3/uL (1-3.4); LYMPHOCYTES % (AUTO) 32 % (22-44); MD NO; MEAN CORPUSCULAR HEMOGLOBIN 31.2 pg (27.0-34.8); MEAN CORPUSCULAR HGB CONC 33.1 g/dL (32.4-35.8); MEAN CORPUSCULAR VOLUME 94.3 fL (80-100); MEAN PLATELET VOLUME 7.9 fL (7.4-10.4); MONOCYTES # (AUTO) 0.36 x10^3/uL (0.2-0.8); MONOCYTES % (AUTO) 8 % (2-9); NEUTROPHILS % (AUTO) 58 % (42-75); PLATELET COUNT 378 x10^3/uL (130-400); RED BLOOD COUNT 3.81 x10^6/uL (3.82-5.3); RED CELL DISTRIBUTION WIDTH 14.1 % (9.6-15.2)
[2018-10-07 01:54] LABS: ALANINE AMINOTRANSFERASE 26 U/L (12-78); ALBUMIN 3.1 g/dL (3.4-5.0); ANION GAP 6 mmol/L (5-15); CALCIUM 8.7 mg/dL (8.5-10.1); CHLORIDE 101 mmol/L (98-107); CREATININE 0.97 mg/dL (0.55-1.02)
[2018-10-07 01:56] LABS: ALKALINE PHOSPHATASE 157 U/L (45-117); BILIRUBIN,TOTAL 0.3 mg/dL (0.2-1.0)
--- NOTE | 2018-10-07 02:04 | NUR ---
PT REFUSED MORPHINE D/T ALLERGY. EDMD NOTIFIED.
[2018-10-07] MEDS ORDERED: KETOROLAC 30 MG/1 ML ONE (02:08)
--- NOTE | 2018-10-07 02:26 | NUR ---
PT MEDICATED PER EMAR. PT TOLERATED WELL.
[2018-10-07] MEDS ORDERED: KETOROLAC 30 MG/1 ML IVPush ONE (02:30)
[2018-10-07] MEDS ORDERED: SULFAMETH./TRIMETHOPRIM DS 800MG/160MG TABLET PO ONE (02:30)
[2018-10-07] MEDS ORDERED: SULFAMETH./TRIMETHOPRIM DS 800MG/160MG TABLET ONE (02:34)
--- NOTE | 2018-10-07 02:43 | NUR ---
PT MEDICATED PER EMAR. PT TOLERATED WELL.
[2018-10-07 03:49] VITALS: BP 136/66
--- NOTE | 2018-10-07 03:50 | NUR ---
PT SLEEPING IN [facility]. RESPS EVEN AND UNLABORED. BP/SPO2 MONITORS IN PLACE. CALL LIGHT WITHIN REACH.
--- NOTE | 2018-10-07 04:56 | NUR ---
PT GIVEN DC INSTRUCTIONS AND SCRIPT. PT EDUCATED REGARDING DC MEDICATION. PT'S AOX4. RESPS EVEN AND UNLABORED. NO ACUTE DISTRESS AT DC.
== END 2018-10-07 04:57 | disposition home or self-care (01) ==
LOC: ED 00:57
DX: L02.212 Cutaneous abscess of back [any part, except buttock and flank] (principal); L03.312 Cellulitis of back [any part except buttock and flank]; E11.65 Type 2 diabetes mellitus with hyperglycemia; I10 Essential (primary) hypertension; J44.9 Chronic obstructive pulmonary disease, unspecified; F17.200 Nicotine dependence, unspecified, uncomplicated
CPT/HCPCS: 36415; 80053; 85025; 96374; 96375; 99283; J1885; J2405

== ENCOUNTER → 2018-10-09 | Outpatient (CLI) | payer MEDICARE, MEDICAID | END | disposition home or self-care (01) | LOC: WOUND 14:33 | PROVIDERS: ATTEND Nurse Practitioner Family | DX: T81.89XA Other complications of procedures, not elsewhere classified, initial encounter (principal); L02.212 Cutaneous abscess of back [any part, except buttock and flank]; B95.61 Methicillin susceptible Staphylococcus aureus infection as the cause of diseases classified elsewhere; E11.65 Type 2 diabetes mellitus with hyperglycemia; E11.51 Type 2 diabetes mellitus with diabetic peripheral angiopathy without gangrene; E11.40 Type 2 diabetes mellitus with diabetic neuropathy, unspecified; G89.4 Chronic pain syndrome; E78.5 Hyperlipidemia, unspecified; I10 Essential (primary) hypertension; J44.9 Chronic obstructive pulmonary disease, unspecified; K21.9 Gastro-esophageal reflux disease without esophagitis; F41.9 Anxiety disorder, unspecified; F32.9 Major depressive disorder, single episode, unspecified; F17.210 Nicotine dependence, cigarettes, uncomplicated; E66.01 Morbid (severe) obesity due to excess calories; Z68.39 Body mass index [BMI] 39.0-39.9, adult; Z88.0 Allergy status to penicillin; Z79.4 Long term (current) use of insulin; Z89.412 Acquired absence of left great toe; Z90.710 Acquired absence of both cervix and uterus; Z88.8 Allergy status to other drugs, medicaments and biological substances; Y92.89 Other specified places as the place of occurrence of the external cause; Y83.8 Other surgical procedures as the cause of abnormal reaction of the patient, or of later complication, without mention of misadventure at the time of the procedure | CPT/HCPCS: 11043; G0463 ==

== ENCOUNTER → 2018-10-12 | Outpatient (CLI) | payer MEDICARE, MEDICAID | END | disposition home or self-care (01) | LOC: WOUND 13:17 | PROVIDERS: ATTEND Family Medicine | DX: T81.89XD Other complications of procedures, not elsewhere classified, subsequent encounter (principal); L02.212 Cutaneous abscess of back [any part, except buttock and flank]; B95.61 Methicillin susceptible Staphylococcus aureus infection as the cause of diseases classified elsewhere; E11.65 Type 2 diabetes mellitus with hyperglycemia; E11.51 Type 2 diabetes mellitus with diabetic peripheral angiopathy without gangrene; E11.40 Type 2 diabetes mellitus with diabetic neuropathy, unspecified; G89.4 Chronic pain syndrome; E78.5 Hyperlipidemia, unspecified; I10 Essential (primary) hypertension; J44.9 Chronic obstructive pulmonary disease, unspecified; K21.9 Gastro-esophageal reflux disease without esophagitis; F41.9 Anxiety disorder, unspecified; F32.9 Major depressive disorder, single episode, unspecified; F17.210 Nicotine dependence, cigarettes, uncomplicated; E66.01 Morbid (severe) obesity due to excess calories; Z68.39 Body mass index [BMI] 39.0-39.9, adult; Z88.0 Allergy status to penicillin; Z79.4 Long term (current) use of insulin; Z89.412 Acquired absence of left great toe; Z90.710 Acquired absence of both cervix and uterus; Z88.8 Allergy status to other drugs, medicaments and biological substances; Y92.89 Other specified places as the place of occurrence of the external cause; Y83.8 Other surgical procedures as the cause of abnormal reaction of the patient, or of later complication, without mention of misadventure at the time of the procedure | CPT/HCPCS: G0463 ==

== ENCOUNTER → 2018-10-16 | Outpatient (CLI) | payer MEDICARE, MEDICAID | END | disposition home or self-care (01) | LOC: WOUND 14:47 | PROVIDERS: ATTEND Nurse Practitioner Family | DX: T81.89XD Other complications of procedures, not elsewhere classified, subsequent encounter (principal); L02.212 Cutaneous abscess of back [any part, except buttock and flank]; B95.61 Methicillin susceptible Staphylococcus aureus infection as the cause of diseases classified elsewhere; E11.65 Type 2 diabetes mellitus with hyperglycemia; E11.51 Type 2 diabetes mellitus with diabetic peripheral angiopathy without gangrene; E11.40 Type 2 diabetes mellitus with diabetic neuropathy, unspecified; G89.4 Chronic pain syndrome; E78.5 Hyperlipidemia, unspecified; I10 Essential (primary) hypertension; J44.9 Chronic obstructive pulmonary disease, unspecified; K21.9 Gastro-esophageal reflux disease without esophagitis; F41.9 Anxiety disorder, unspecified; F32.9 Major depressive disorder, single episode, unspecified; F17.210 Nicotine dependence, cigarettes, uncomplicated; E66.01 Morbid (severe) obesity due to excess calories; Z68.39 Body mass index [BMI] 39.0-39.9, adult; Z88.0 Allergy status to penicillin; Z79.4 Long term (current) use of insulin; Z89.412 Acquired absence of left great toe; Z90.710 Acquired absence of both cervix and uterus; Z88.8 Allergy status to other drugs, medicaments and biological substances; Y92.89 Other specified places as the place of occurrence of the external cause; Y83.8 Other surgical procedures as the cause of abnormal reaction of the patient, or of later complication, without mention of misadventure at the time of the procedure | CPT/HCPCS: 11043 ==

== ENCOUNTER 2018-10-20 00:32 | Emergency (ER) | payer MEDICARE, MEDICAID ==
[~2018-10-20] VITALS: Ht 157.5 cm; Wt 97.0 kg
--- NOTE | 2018-10-20 02:00 | NUR ---
Pt aware that she is next to come back, remains stable and NAD.
--- NOTE | 2018-10-20 02:39 | NUR ---
pt to room placed in gown and awaiting orders.
[2018-10-20] MEDS ORDERED: HYDROcodone/APAP 10/325 MG TABLET ONE (02:43)
[2018-10-20] MEDS ORDERED: HYDROcodone/APAP 10/325 MG TABLET PO ONE (03:00)
--- NOTE | 2018-10-20 03:03 | NUR ---
PT MEDICATED ORDERED.
[2018-10-20 03:08] LABS: BASOPHILS # (AUTO) 0.02 x10^3/uL (0-0.1); BASOPHILS % (AUTO) 0 % (0-1); EOSINOPHILS # (AUTO) 0.19 x10^3/uL (0-0.4); EOSINOPHILS % (AUTO) 3 % (1-7); LYMPHOCYTES # (AUTO) 1.72 x10^3/uL (1-3.4); LYMPHOCYTES % (AUTO) 28 % (22-44); MD NO; MEAN CORPUSCULAR HEMOGLOBIN 31.3 pg (27.0-34.8); MEAN CORPUSCULAR HGB CONC 33.5 g/dL (32.4-35.8); MEAN CORPUSCULAR VOLUME 93.4 fL (80-100); MEAN PLATELET VOLUME 9.5 fL (7.4-10.4); MONOCYTES # (AUTO) 0.52 x10^3/uL (0.2-0.8); MONOCYTES % (AUTO) 9 % (2-9); NEUTROPHILS # (AUTO) 3.61 x10^3/uL (1.8-6.8); NEUTROPHILS % (AUTO) 60 % (42-75); PLATELET COUNT 234 x10^3/uL (130-400); RED BLOOD COUNT 4.18 x10^6/uL (3.82-5.3); RED CELL DISTRIBUTION WIDTH 13.9 % (9.6-15.2)
[2018-10-20 03:20] LABS: ALANINE AMINOTRANSFERASE 68 U/L (12-78); ALBUMIN 3.7 g/dL (3.4-5.0); ANION GAP 10 mmol/L (5-15); CALCIUM 9.5 mg/dL (8.5-10.1); CHLORIDE 97 mmol/L (98-107); CREATININE 0.97 mg/dL (0.55-1.02)
[2018-10-20 03:23] LABS: ALKALINE PHOSPHATASE 154 U/L (45-117); BILIRUBIN,TOTAL 0.6 mg/dL (0.2-1.0); TOTAL PROTEIN 7.9 g/dL (6.4-8.2)
[2018-10-20] MEDS ORDERED: SULFAMETH./TRIMETHOPRIM DS 800MG/160MG TABLET PO ONE (03:30)
[2018-10-20] MEDS ORDERED: SODIUM CHLORIDE FLUSH 10ML SYR IVF ONE (04:00)
[2018-10-20] MEDS ORDERED: SODIUM CHLORIDE 0.9% 1,000ML IVBOLUS ONE (04:00)
[2018-10-20] MEDS ORDERED: INSULIN REGULAR 100 UNITS/ML, 3ML VIAL IVPush ONE (04:00)
[2018-10-20] MEDS ORDERED: SULFAMETH./TRIMETHOPRIM DS 800MG/160MG TABLET ONE (04:11)
[2018-10-20] MEDS ORDERED: INSULIN LISPRO 100 UNITS/ML, PEN ONE (04:14)
[2018-10-20 04:34] VITALS: BP 122/59
== END 2018-10-20 05:51 | disposition home or self-care (01) ==
LOC: ED 03:03
DX: L02.212 Cutaneous abscess of back [any part, except buttock and flank] (principal); E11.65 Type 2 diabetes mellitus with hyperglycemia; I10 Essential (primary) hypertension; J44.9 Chronic obstructive pulmonary disease, unspecified; F17.210 Nicotine dependence, cigarettes, uncomplicated
CPT/HCPCS: 36415; 80053; 83605; 85025; 87040; 96361; 96374; 99283; J1815; J7030

== ENCOUNTER 2018-10-23 01:13 | Emergency (ER) | payer MEDICARE, MEDICAID ==
[~2018-10-23] VITALS: Ht 157.5 cm; Wt 97.0 kg
[2018-10-23 01:17] VITALS: BP 148/87
--- NOTE | 2018-10-23 03:06 | NUR ---
"MY DRAIN TUBE IS STILL DRAINING TOO MUCH." BACK SURGERY WAS SEPTEMBER 25, [facility]
--- NOTE | 2018-10-23 03:06 | NUR ---
pt to room from lobby
== END 2018-10-23 03:55 ==
LOC: ED 02:49
DX: S41.031D Puncture wound without foreign body of right shoulder, subsequent encounter (principal); R11.0 Nausea; I10 Essential (primary) hypertension; E11.65 Type 2 diabetes mellitus with hyperglycemia; J44.9 Chronic obstructive pulmonary disease, unspecified; F17.200 Nicotine dependence, unspecified, uncomplicated; X58.XXXD Exposure to other specified factors, subsequent encounter
CPT/HCPCS: 99281; 99282

== ENCOUNTER 2018-10-27 01:22 | Emergency (ER) | payer MEDICARE, MEDICAID ==
[~2018-10-27] VITALS: Ht 157.5 cm; Wt 100.0 kg
[2018-10-27 01:25] VITALS: BP 175/92
[2018-10-27] MEDS ORDERED: SODIUM CHLORIDE 0.9% 1,000ML IVBOLUS ONE (02:00)
[2018-10-27] MEDS ORDERED: ONDANSETRON 2MG/ML, 2ML IVPush ONE (02:00)
[2018-10-27 02:07] LABS: PH, VENOUS 7.413 pH (7.320-7.420)
--- NOTE | 2018-10-27 02:11 | NUR ---
IV FLUIDS INFUSING AT THIS TIME. PT TOLERATING WELL.
[2018-10-27 02:12] LABS: BASOPHILS # (AUTO) 0.03 x10^3/uL (0-0.1); BASOPHILS % (AUTO) 0 % (0-1); EOSINOPHILS # (AUTO) 0.18 x10^3/uL (0-0.4); EOSINOPHILS % (AUTO) 3 % (1-7); LYMPHOCYTES # (AUTO) 1.78 x10^3/uL (1-3.4); LYMPHOCYTES % (AUTO) 26 % (22-44); MD NO; MEAN CORPUSCULAR HEMOGLOBIN 31.6 pg (27.0-34.8); MEAN CORPUSCULAR HGB CONC 33.3 g/dL (32.4-35.8); MEAN CORPUSCULAR VOLUME 94.8 fL (80-100); MEAN PLATELET VOLUME 9.9 fL (7.4-10.4); MONOCYTES # (AUTO) 0.46 x10^3/uL (0.2-0.8); MONOCYTES % (AUTO) 7 % (2-9); NEUTROPHILS % (AUTO) 64 % (42-75); PLATELET COUNT 203 x10^3/uL (130-400); RED BLOOD COUNT 4.14 x10^6/uL (3.82-5.3); RED CELL DISTRIBUTION WIDTH 13.3 % (9.6-15.2)
[2018-10-27 02:21] LABS: ALANINE AMINOTRANSFERASE 40 U/L (12-78); ALBUMIN 3.4 g/dL (3.4-5.0); ANION GAP 12 mmol/L (5-15); CALCIUM 8.9 mg/dL (8.5-10.1); CHLORIDE 97 mmol/L (98-107)
[2018-10-27 02:23] LABS: ALKALINE PHOSPHATASE 138 U/L (45-117); BILIRUBIN,TOTAL 0.4 mg/dL (0.2-1.0); TOTAL PROTEIN 7.4 g/dL (6.4-8.2)
[2018-10-27 02:41] LABS: HEMOGLOBIN A1C 11.4 % (4.2-6.3)
[2018-10-27 02:49] LABS: ACETONE, SERUM Negative (Negative)
[2018-10-27] MEDS ORDERED: INSULIN REGULAR 100 UNITS/ML, 3ML VIAL IVPush ONE (03:00)
[2018-10-27] MEDS ORDERED: INSULIN LISPRO 100 UNITS/ML, PEN ONE (03:03)
== END 2018-10-27 04:06 | disposition left against medical advice (07) ==
LOC: ED 02:04
DX: E11.65 Type 2 diabetes mellitus with hyperglycemia (principal); I10 Essential (primary) hypertension; Z72.89 Other problems related to lifestyle; Z75.9 Unspecified problem related to medical facilities and other health care; Z91.14 Patient's other noncompliance with medication regimen; Z63.8 Other specified problems related to primary support group
CPT/HCPCS: 80053; 82010; 82803; 82962; 83036; 83690; 83735; 85025; 93005; 96361; 96374; 99284; J1815; J7030

== ENCOUNTER 2018-11-03 02:38 | Emergency (ER) | payer MEDICARE, MEDICAID ==
[~2018-11-03] VITALS: Ht 157.5 cm; Wt 100.0 kg
[2018-11-03 02:40] VITALS: BP 160/97
[2018-11-03] MEDS ORDERED: ONDANSETRON ODT 8 MG PO STA (03:06)
[2018-11-03] MEDS ORDERED: ONDANSETRON ODT 8 MG ONE (03:14)
--- NOTE | 2018-11-03 03:24 | NUR ---
xeroform with sterile gauze applied to wound per pa request.
[2018-11-03 03:25] LABS: BASOPHILS # (AUTO) 0.03 x10^3/uL (0-0.1); BASOPHILS % (AUTO) 1 % (0-1); EOSINOPHILS # (AUTO) 0.09 x10^3/uL (0-0.4); EOSINOPHILS % (AUTO) 2 % (1-7); LYMPHOCYTES # (AUTO) 1.12 x10^3/uL (1-3.4); LYMPHOCYTES % (AUTO) 25 % (22-44); MD NO; MEAN CORPUSCULAR HEMOGLOBIN 30.7 pg (27.0-34.8); MEAN CORPUSCULAR HGB CONC 32.4 g/dL (32.4-35.8); MEAN CORPUSCULAR VOLUME 94.6 fL (80-100); MEAN PLATELET VOLUME 8.4 fL (7.4-10.4); MONOCYTES # (AUTO) 0.29 x10^3/uL (0.2-0.8); MONOCYTES % (AUTO) 7 % (2-9); NEUTROPHILS # (AUTO) 3.02 x10^3/uL (1.8-6.8); NEUTROPHILS % (AUTO) 66 % (42-75); PLATELET COUNT 250 x10^3/uL (130-400); RED BLOOD COUNT 3.92 x10^6/uL (3.82-5.3); RED CELL DISTRIBUTION WIDTH 13.4 % (9.6-15.2)
[2018-11-03 03:33] LABS: ALANINE AMINOTRANSFERASE 29 U/L (12-78); ALBUMIN 3.4 g/dL (3.4-5.0); ANION GAP 11 mmol/L (5-15); CHLORIDE 102 mmol/L (98-107); CREATININE 0.88 mg/dL (0.55-1.02)
[2018-11-03 03:38] LABS: ALKALINE PHOSPHATASE 119 U/L (45-117); BILIRUBIN,TOTAL 0.6 mg/dL (0.2-1.0); TOTAL PROTEIN 7.2 g/dL (6.4-8.2); TROPONIN I < 0.015 ng/mL (0.000-0.045)
== END 2018-11-03 04:28 | disposition home or self-care (01) ==
LOC: ED 04:05
DX: R07.89 Other chest pain (principal); L03.312 Cellulitis of back [any part except buttock and flank]; E11.65 Type 2 diabetes mellitus with hyperglycemia; J44.9 Chronic obstructive pulmonary disease, unspecified; F17.210 Nicotine dependence, cigarettes, uncomplicated
CPT/HCPCS: 36415; 71045; 80053; 84484; 85025; 93005; 99284; Q0162; 82962

== ENCOUNTER 2018-11-05 02:15 | Emergency (ER) | payer MEDICARE, MEDICAID ==
[~2018-11-05] VITALS: Ht 157.5 cm; Wt 100.0 kg
--- NOTE | 2018-11-05 02:28 | NUR ---
PT STATES THAT SHE IS HAVING BACK PAIN STILL AND VOMITING UP BLOOD. WAS TOLD BY HER PCP THAT SHE NEEDS TO BE SEEN IN THE ER AND STATES "I'M HOPING TO BE GETTING ADMITTED". PER TRIAGE NOTE
[2018-11-05 02:40] VITALS: BP 145/68
[2018-11-05] MEDS ORDERED: ONDANSETRON ODT 4 MG ONE (02:41)
[2018-11-05] MEDS ORDERED: ONDANSETRON ODT 8 MG ONE (02:43)
--- NOTE | 2018-11-05 02:54 | NUR ---
GIVEN ZOFRAN PO
[2018-11-05] MEDS ORDERED: ONDANSETRON ODT 8 MG PO ONE (03:00)
[2018-11-05 03:03] LABS: BASOPHILS # (AUTO) 0.03 x10^3/uL (0-0.1); BASOPHILS % (AUTO) 1 % (0-1); EOSINOPHILS # (AUTO) 0.14 x10^3/uL (0-0.4); EOSINOPHILS % (AUTO) 3 % (1-7); LYMPHOCYTES % (AUTO) 25 % (22-44); MD NO; MEAN CORPUSCULAR HEMOGLOBIN 31.7 pg (27.0-34.8); MEAN CORPUSCULAR HGB CONC 32.7 g/dL (32.4-35.8); MEAN CORPUSCULAR VOLUME 96.9 fL (80-100); MEAN PLATELET VOLUME 8.4 fL (7.4-10.4); MONOCYTES # (AUTO) 0.41 x10^3/uL (0.2-0.8); MONOCYTES % (AUTO) 8 % (2-9); NEUTROPHILS # (AUTO) 3.34 x10^3/uL (1.8-6.8); NEUTROPHILS % (AUTO) 64 % (42-75); PLATELET COUNT 260 x10^3/uL (130-400); RED BLOOD COUNT 3.54 x10^6/uL (3.82-5.3); RED CELL DISTRIBUTION WIDTH 13.4 % (9.6-15.2)
--- NOTE | 2018-11-05 03:35 | NUR ---
RECTAL EXAM WAS DONE BY DR SMITH NEG RESULT GIVEN DC INSTRUCTION PT UNDERSTOOD PT WAS ON W/C ( ELECTRICAL ) AND CHECK OUT
== END 2018-11-05 03:39 | disposition home or self-care (01) ==
LOC: ED 02:41
DX: R11.2 Nausea with vomiting, unspecified (principal); D64.9 Anemia, unspecified; Z72.9 Problem related to lifestyle, unspecified; I10 Essential (primary) hypertension; E11.9 Type 2 diabetes mellitus without complications; J44.9 Chronic obstructive pulmonary disease, unspecified
CPT/HCPCS: 36415; 85025; 99283; Q0162

== ENCOUNTER 2018-11-09 14:24 | Outpatient (CLI) | payer MEDICARE, MEDICAID | END 2018-11-09 23:59 | disposition home or self-care (01) | LOC: WOUND 14:24 | PROVIDERS: ATTEND Family Medicine | DX: T81.89XD Other complications of procedures, not elsewhere classified, subsequent encounter (principal); L02.212 Cutaneous abscess of back [any part, except buttock and flank]; B95.61 Methicillin susceptible Staphylococcus aureus infection as the cause of diseases classified elsewhere; E11.65 Type 2 diabetes mellitus with hyperglycemia; E11.51 Type 2 diabetes mellitus with diabetic peripheral angiopathy without gangrene; E11.40 Type 2 diabetes mellitus with diabetic neuropathy, unspecified; G89.4 Chronic pain syndrome; E78.5 Hyperlipidemia, unspecified; I10 Essential (primary) hypertension; J44.9 Chronic obstructive pulmonary disease, unspecified; K21.9 Gastro-esophageal reflux disease without esophagitis; F41.9 Anxiety disorder, unspecified; F32.9 Major depressive disorder, single episode, unspecified; F17.210 Nicotine dependence, cigarettes, uncomplicated; E66.01 Morbid (severe) obesity due to excess calories; Z68.39 Body mass index [BMI] 39.0-39.9, adult; Z88.0 Allergy status to penicillin; Z79.4 Long term (current) use of insulin; Z89.412 Acquired absence of left great toe; Z90.710 Acquired absence of both cervix and uterus; Z88.8 Allergy status to other drugs, medicaments and biological substances; Y83.8 Other surgical procedures as the cause of abnormal reaction of the patient, or of later complication, without mention of misadventure at the time of the procedure | CPT/HCPCS: 97597 ==

== ENCOUNTER 2018-11-10 01:46 | Emergency (ER) | payer MEDICARE, MEDICAID ==
[~2018-11-10] VITALS: Ht 157.5 cm; Wt 97.7 kg
[2018-11-10 04:38] VITALS: BP 136/72
== END 2018-11-10 04:45 | disposition home or self-care (01) ==
LOC: ED 02:35
DX: R11.2 Nausea with vomiting, unspecified (principal); E10.65 Type 1 diabetes mellitus with hyperglycemia; R10.84 Generalized abdominal pain; Z72.9 Problem related to lifestyle, unspecified; J44.9 Chronic obstructive pulmonary disease, unspecified; I10 Essential (primary) hypertension
CPT/HCPCS: 36415; 80053; 82962; 83690; 85025; 96372; 99283

== ENCOUNTER 2018-11-14 13:55 | Outpatient (CLI) | payer MEDICARE, MEDICAID | END 2018-11-14 23:59 | disposition home or self-care (01) | LOC: WOUND 13:55 | PROVIDERS: ATTEND Internal Medicine | DX: T81.89XD Other complications of procedures, not elsewhere classified, subsequent encounter (principal); L02.212 Cutaneous abscess of back [any part, except buttock and flank]; B95.61 Methicillin susceptible Staphylococcus aureus infection as the cause of diseases classified elsewhere; E11.65 Type 2 diabetes mellitus with hyperglycemia; E11.51 Type 2 diabetes mellitus with diabetic peripheral angiopathy without gangrene; E11.40 Type 2 diabetes mellitus with diabetic neuropathy, unspecified; G89.4 Chronic pain syndrome; E78.5 Hyperlipidemia, unspecified; I10 Essential (primary) hypertension; J44.9 Chronic obstructive pulmonary disease, unspecified; K21.9 Gastro-esophageal reflux disease without esophagitis; F41.9 Anxiety disorder, unspecified; F32.9 Major depressive disorder, single episode, unspecified; F17.210 Nicotine dependence, cigarettes, uncomplicated; E66.01 Morbid (severe) obesity due to excess calories; Z68.39 Body mass index [BMI] 39.0-39.9, adult; Z88.0 Allergy status to penicillin; Z79.4 Long term (current) use of insulin; Z89.412 Acquired absence of left great toe; Z90.710 Acquired absence of both cervix and uterus; Z88.8 Allergy status to other drugs, medicaments and biological substances; Y83.8 Other surgical procedures as the cause of abnormal reaction of the patient, or of later complication, without mention of misadventure at the time of the procedure | CPT/HCPCS: G0463 ==

== ENCOUNTER 2018-11-16 14:06 | Outpatient (CLI) | payer MEDICARE, MEDICAID | END 2018-11-16 23:59 | disposition home or self-care (01) | LOC: WOUND 14:06 | PROVIDERS: ATTEND Family Medicine | DX: T81.89XD Other complications of procedures, not elsewhere classified, subsequent encounter (principal); L02.212 Cutaneous abscess of back [any part, except buttock and flank]; B95.61 Methicillin susceptible Staphylococcus aureus infection as the cause of diseases classified elsewhere; E11.65 Type 2 diabetes mellitus with hyperglycemia; E11.51 Type 2 diabetes mellitus with diabetic peripheral angiopathy without gangrene; E11.40 Type 2 diabetes mellitus with diabetic neuropathy, unspecified; G89.4 Chronic pain syndrome; E78.5 Hyperlipidemia, unspecified; I10 Essential (primary) hypertension; J44.9 Chronic obstructive pulmonary disease, unspecified; K21.9 Gastro-esophageal reflux disease without esophagitis; F41.9 Anxiety disorder, unspecified; F32.9 Major depressive disorder, single episode, unspecified; F17.210 Nicotine dependence, cigarettes, uncomplicated; E66.01 Morbid (severe) obesity due to excess calories; Z68.39 Body mass index [BMI] 39.0-39.9, adult; Z88.0 Allergy status to penicillin; Z79.4 Long term (current) use of insulin; Z89.412 Acquired absence of left great toe; Z90.710 Acquired absence of both cervix and uterus; Z88.8 Allergy status to other drugs, medicaments and biological substances; Y83.8 Other surgical procedures as the cause of abnormal reaction of the patient, or of later complication, without mention of misadventure at the time of the procedure | CPT/HCPCS: 97597 ==

== ENCOUNTER 2018-11-18 02:24 | Emergency (ER) | payer MEDICARE, MEDICAID ==
[~2018-11-18] VITALS: Ht 157.5 cm; Wt 90.0 kg
--- NOTE | 2018-11-18 02:54 | NUR ---
FIRST CONTACT WITH PT. PT PRESENTS IN ELECTRIC STATING THAT SHE IS STILL COUGHING UP BLOOD AND THROWING UP BLOOD SINCE SEPTEMBER. PT HAS MANY MANY COMPLAINTS, STATES THAT SHE SAW HER PRIMARY DOCTOR YESTERDAY AND SHE WANTED HER TO BE ADMITTED, HAS ALSO BEEN SEEN AT [facility], IS CURRENTLY HOMELESS BUT SOMEONE IS TAKING CARE OF HER PETS. PT PINK WARM AND DRY AND IN NAD. PT'S AOX4. REPS EVEN AND UNLABORED. EDMD AT BEDSIDE TO EVALUAT AT THIS TIME.
[2018-11-18 02:59] VITALS: BP 127/65
[2018-11-18 03:07] LABS: BASOPHILS # (AUTO) 0.01 x10^3/uL (0-0.1); BASOPHILS % (AUTO) 0 % (0-1); EOSINOPHILS # (AUTO) 0.23 x10^3/uL (0-0.4); EOSINOPHILS % (AUTO) 3 % (1-7); LYMPHOCYTES % (AUTO) 20 % (22-44); MD NO; MEAN CORPUSCULAR HEMOGLOBIN 31.5 pg (27.0-34.8); MEAN CORPUSCULAR HGB CONC 33.6 g/dL (32.4-35.8); MEAN CORPUSCULAR VOLUME 93.8 fL (80-100); MEAN PLATELET VOLUME 9.1 fL (7.4-10.4); MONOCYTES # (AUTO) 0.52 x10^3/uL (0.2-0.8); MONOCYTES % (AUTO) 7 % (2-9); NEUTROPHILS # (AUTO) 5.26 x10^3/uL (1.8-6.8); NEUTROPHILS % (AUTO) 70 % (42-75); PLATELET COUNT 238 x10^3/uL (130-400); RED BLOOD COUNT 4.06 x10^6/uL (3.82-5.3); RED CELL DISTRIBUTION WIDTH 12.8 % (9.6-15.2)
[2018-11-18 03:19] LABS: ALBUMIN 3.5 g/dL (3.4-5.0); ANION GAP 12 mmol/L (5-15); CALCIUM 8.5 mg/dL (8.5-10.1); CHLORIDE 97 mmol/L (98-107); CREATININE 1.07 mg/dL (0.55-1.02)
[2018-11-18] MEDS ORDERED: INSULIN SINGLE DOSE, ER SQ-INSULIN ONE (03:27)
[2018-11-18] MEDS ORDERED: INSULIN REGULAR 100 UNITS/ML, 3ML VIAL SQ-INSULIN ONE (03:30)
--- NOTE | 2018-11-18 03:34 | NUR ---
pt medicated per emar. pt tolerated well.
--- NOTE | 2018-11-18 04:02 | NUR ---
pt's bs is still over 600 at this time.
--- NOTE | 2018-11-18 04:36 | NUR ---
bs 590 at this time.
--- NOTE | 2018-11-18 05:00 | NUR ---
Patient given discharge instructions and they have confirmed that they understand the instructions. Patient ambulatory with steady gait.
--- NOTE | 2018-11-18 05:05 | NUR ---
PT LEFT PERSCRIPTION ON THE BED. THIS RN GAVE IT TO CHURN DRILL OPERATOR.
== END 2018-11-18 05:01 | disposition home or self-care (01) ==
LOC: ED 02:48
DX: L03.116 Cellulitis of left lower limb (principal); E11.65 Type 2 diabetes mellitus with hyperglycemia; R11.2 Nausea with vomiting, unspecified; I10 Essential (primary) hypertension; J44.9 Chronic obstructive pulmonary disease, unspecified; R05 Cough; Z87.891 Personal history of nicotine dependence
CPT/HCPCS: 36415; 71045; 80048; 82040; 82962; 85025; 96372; 99284

== ENCOUNTER 2019-03-20 14:27 | Outpatient (CLI) | payer MEDICARE, MEDICAID | END 2019-03-20 23:59 | disposition home or self-care (01) | LOC: WOUND 14:27 | PROVIDERS: ATTEND Internal Medicine | DX: T81.89XD Other complications of procedures, not elsewhere classified, subsequent encounter (principal); L02.212 Cutaneous abscess of back [any part, except buttock and flank]; B95.61 Methicillin susceptible Staphylococcus aureus infection as the cause of diseases classified elsewhere; E11.51 Type 2 diabetes mellitus with diabetic peripheral angiopathy without gangrene; E11.40 Type 2 diabetes mellitus with diabetic neuropathy, unspecified; G89.4 Chronic pain syndrome; E78.5 Hyperlipidemia, unspecified; I10 Essential (primary) hypertension; J44.9 Chronic obstructive pulmonary disease, unspecified; K21.9 Gastro-esophageal reflux disease without esophagitis; F41.9 Anxiety disorder, unspecified; F32.9 Major depressive disorder, single episode, unspecified; E66.01 Morbid (severe) obesity due to excess calories; F17.210 Nicotine dependence, cigarettes, uncomplicated; Z68.39 Body mass index [BMI] 39.0-39.9, adult; Z79.4 Long term (current) use of insulin; Z88.0 Allergy status to penicillin; Z89.412 Acquired absence of left great toe; Z90.710 Acquired absence of both cervix and uterus; Z88.8 Allergy status to other drugs, medicaments and biological substances; Y83.8 Other surgical procedures as the cause of abnormal reaction of the patient, or of later complication, without mention of misadventure at the time of the procedure | CPT/HCPCS: 97597; 97598 ==

== ENCOUNTER 2019-12-11 13:29 | Outpatient (CLI) | payer MEDICARE, MEDICAID ==
[2019-12-11 13:54] LABS: BASOPHILS # (AUTO) 0.04 x10^3/uL (0-0.1); BASOPHILS % (AUTO) 1 % (0-1); EOSINOPHILS # (AUTO) 0.13 x10^3/uL (0-0.4); EOSINOPHILS % (AUTO) 2 % (1-7); LYMPHOCYTES # (AUTO) 1.37 x10^3/uL (1-3.4); LYMPHOCYTES % (AUTO) 25 % (22-44); MD NO; MEAN CORPUSCULAR HEMOGLOBIN 31.4 pg (27.0-34.8); MEAN CORPUSCULAR HGB CONC 33.6 g/dL (32.4-35.8); MEAN CORPUSCULAR VOLUME 93.7 fL (80-100); MEAN PLATELET VOLUME 9.5 fL (7.4-10.4); MONOCYTES # (AUTO) 0.33 x10^3/uL (0.2-0.8); MONOCYTES % (AUTO) 6 % (2-9); NEUTROPHILS # (AUTO) 3.72 x10^3/uL (1.8-6.8); NEUTROPHILS % (AUTO) 67 % (42-75); PLATELET COUNT 225 x10^3/uL (130-400); RED CELL DISTRIBUTION WIDTH 12.9 % (9.6-15.2)
[2019-12-11 14:00] LABS: ALBUMIN 3.1 g/dL (3.4-5.0); ANION GAP 5 mmol/L (5-15); CALCIUM 8.9 mg/dL (8.5-10.1); CHLORIDE 104 mmol/L (98-107)
[2019-12-11 14:10] LABS: ALANINE AMINOTRANSFERASE 42 U/L (12-78); ALKALINE PHOSPHATASE 135 U/L (45-117); BILIRUBIN,TOTAL 0.5 mg/dL (0.2-1.0); CHOL/HDL RATIO 5.7; CHOLESTEROL, TOTAL 200 mg/dL (140-239); CREATININE 0.81 mg/dL (0.55-1.02); FREE T4 (FREE THYROXINE) 1.12 ng/dL (0.76-1.46); HDL CHOL % 18 % (28-40); HDL CHOLESTEROL (DIRECT) 35 mg/dL (40-60); LDL CHOLESTEROL,CALCULATED 109 mg/dL (54-169); LDL/HDL RATIO 3.1 (0.5-3.0); TOTAL PROTEIN 6.9 g/dL (6.4-8.2); TRIGLYCERIDES 278 mg/dL (50-200); VLDL CHOLESTEROL 56 mg/dL (0-25)
== END 2019-12-11 23:59 | disposition home or self-care (01) ==
LOC: LAB 13:29
PROVIDERS: ATTEND Registered Nurse
DX: E11.65 Type 2 diabetes mellitus with hyperglycemia (principal); J45.20 Mild intermittent asthma, uncomplicated; I10 Essential (primary) hypertension; E66.01 Morbid (severe) obesity due to excess calories
CPT/HCPCS: 36415; 80053; 80061; 82306; 83036; 84439; 84443; 85025

== ENCOUNTER → 2020-03-05 | Outpatient (CLI) | payer MEDICARE, MEDICAID ==
[2020-03-05 13:00] LABS: BASOPHILS % (AUTO) 1 % (0-1); EOSINOPHILS % (AUTO) 3 % (1-7); LYMPHOCYTES % (AUTO) 32 % (22-44); MEAN CORPUSCULAR HEMOGLOBIN 31.8 pg (27.0-34.8); MEAN CORPUSCULAR HGB CONC 34.5 g/dL (32.4-35.8); MEAN PLATELET VOLUME 10.1 fL (7.4-10.4); MONOCYTES % (AUTO) 8 % (2-9); NEUTROPHILS % (AUTO) 57 % (42-75); PLATELET COUNT 251 x10^3/uL (130-400); RED BLOOD COUNT 4.04 x10^6/uL (3.82-5.3); RED CELL DISTRIBUTION WIDTH 12.5 % (9.6-15.2)
[2020-03-05 13:15] LABS: MD NO
[2020-03-05 14:46] LABS: CHLORIDE 93 mmol/L (98-107)
[2020-03-05 14:47] LABS: ALANINE AMINOTRANSFERASE 35 U/L (12-78); ALBUMIN 3.5 g/dL (3.4-5.0); ALKALINE PHOSPHATASE 145 U/L (45-117); ANION GAP 8 mmol/L (5-15); BILIRUBIN,TOTAL 0.3 mg/dL (0.2-1.0); CALCIUM 9.3 mg/dL (8.5-10.1); CREATININE 1.22 mg/dL (0.55-1.02); TOTAL PROTEIN 7.7 g/dL (6.4-8.2)
== END | disposition home or self-care (01) ==
LOC: LAB 12:11
PROVIDERS: ATTEND Registered Nurse
DX: E11.65 Type 2 diabetes mellitus with hyperglycemia (principal)
CPT/HCPCS: 36415; 80053; 83036; 85025

== ENCOUNTER 2020-04-10 02:00 | Emergency (ER) | payer MEDICARE, MEDICAID ==
[~2020-04-10] VITALS: Ht 157.5 cm; Wt 86.0 kg
[~2020-04-10 02:00] MED LIST changes: -CLIN300C8 PO; +CLIN300C9 PO
--- NOTE | 2020-04-10 02:18 | NUR ---
Pt to exam room via her wc. Dr De Leon to examine pt.
[2020-04-10] MEDS ORDERED: ONDANSETRON 2MG/ML, 2ML ONE (02:43)
--- NOTE | 2020-04-10 02:47 | NUR ---
Pt with multiple complaints and multiple needs. IV started, bloods drawn and sent, pcxr done, call connors, warm blankets. IVF infusing, zofran given. Will continue to monitor.
[2020-04-10 02:51] LABS: BASOPHILS % (AUTO) 1 % (0-1); EOSINOPHILS % (AUTO) 2 % (1-7); LYMPHOCYTES % (AUTO) 22 % (22-44); MEAN CORPUSCULAR HGB CONC 33.3 g/dL (32.4-35.8); MEAN PLATELET VOLUME 7.9 fL (7.4-10.4); MONOCYTES % (AUTO) 10 % (2-9); NEUTROPHILS % (AUTO) 66 % (42-75); PLATELET COUNT 425 x10^3/uL (130-400); RED BLOOD COUNT 3.08 x10^6/uL (3.82-5.3); RED CELL DISTRIBUTION WIDTH 12.8 % (9.6-15.2)
[2020-04-10 02:58] LABS: ALANINE AMINOTRANSFERASE 19 U/L (12-78); ALBUMIN 2.5 g/dL (3.4-5.0); ANION GAP 11 mmol/L (5-15); CALCIUM 8.7 mg/dL (8.5-10.1); CHLORIDE 99 mmol/L (98-107); CREATININE 1.21 mg/dL (0.55-1.02)
[2020-04-10] MEDS ORDERED: ONDANSETRON 2MG/ML, 2ML IVPush ONE (03:00)
[2020-04-10] MEDS ORDERED: SODIUM CHLORIDE 0.9% 1,000ML IVBOLUS ONE (03:00)
[2020-04-10 03:02] LABS: ALKALINE PHOSPHATASE 222 U/L (45-117); BILIRUBIN,TOTAL 0.3 mg/dL (0.2-1.0); TOTAL PROTEIN 7.3 g/dL (6.4-8.2); TROPONIN I < 0.015 ng/mL (0.000-0.045)
[2020-04-10] MEDS ORDERED: INSULIN SINGLE DOSE, ER ONE (03:25)
[2020-04-10] MEDS ORDERED: INSULIN REGULAR 100 UNITS/ML, 3ML VIAL IVPush ONE (03:30)
--- NOTE | 2020-04-10 03:30 | NUR ---
Insulin per order for bg 536, IVF infusing. Pt up on her own, rolls down to br in her wc. Will recheck BG in 60 min.
[2020-04-10 03:33] LABS: MD SCAN
[2020-04-10] MEDS ORDERED: METOCLOPRAMIDE 5 MG/ML, 2ML IVPush ONE (04:00)
[2020-04-10] MEDS ORDERED: METOCLOPRAMIDE 5 MG/ML, 2ML ONE (04:03)
--- NOTE | 2020-04-10 04:16 | NUR ---
Pt states when she went to bathroom had vomiting episodes. Pt has not had any witnessed vomitting while in ER. Medicated per order for reglan. Will recheck bg. VSS. Pt with multiple complaints.
--- NOTE | 2020-04-10 04:31 | NUR ---
IV dc cath intact, VSS. BG improved. Pt dc with instruct and rx. Pt verbalizes understanding of instruct and f/u. To return to ER if worse or concerns.
[2020-04-10 04:32] VITALS: BP 132/78
== END 2020-04-10 04:52 ==
LOC: ED 02:25
DX: E11.65 Type 2 diabetes mellitus with hyperglycemia (principal); L01.01 Non-bullous impetigo; R11.2 Nausea with vomiting, unspecified; R19.7 Diarrhea, unspecified; R06.02 Shortness of breath; R07.89 Other chest pain; R05 Cough; E11.9 Type 2 diabetes mellitus without complications; J44.9 Chronic obstructive pulmonary disease, unspecified; R00.0 Tachycardia, unspecified; R10.9 Unspecified abdominal pain; I10 Essential (primary) hypertension; E66.9 Obesity, unspecified; F17.200 Nicotine dependence, unspecified, uncomplicated; Z68.34 Body mass index [BMI] 34.0-34.9, adult
CPT/HCPCS: 36415; 71045; 80053; 82962; 83690; 84484; 85025; 93005; 96361; 96374; 96375; 99285; J1815; J2405; J2765; J7030

== ENCOUNTER 2020-04-14 22:35 | Emergency (ER) | payer MEDICARE, MEDICAID ==
[~2020-04-14] VITALS: Ht 157.5 cm; Wt 86.5 kg
[2020-04-14 22:39] VITALS: BP 157/82
--- NOTE | 2020-04-14 23:47 | NUR ---
pt to room from lobby
--- NOTE | 2020-04-15 00:05 | NUR ---
Provider in room to talk to patient. Patient started saying she has SOB, and chest pain, coughing up blood and recently hospitalized. Patient placed on monitoring coordinator. Door closed to room. [employer] explained to patient d/t her sx that the door needs to be closed. Patient started saying that she will "freak out if its closed" [employer] explained again that the door has to stay closed, but would keep the curtain open so she could see out of the door. Patient asking to see the acid supervisor and asking for another room that the door can stay open. [employer] explained again that there are no other rooms and d/t her sx that no matter what room she goes to the door would have to be closed. Provider and acid supervisor aware
--- NOTE | 2020-04-15 00:24 | NUR ---
Patient was ringing call light, grant writer went to check on her. Patient states that she can't stay in that room with the door closed. Patient ripped off all of her cardiac lead, b/p cuff and O2 sat. Patient then left the room in her motorized wheelchair stating "Im going back to [facility], I can't stay in a room with the door close." Claim Manager and provider aware.
[2020-04-15 00:36] LABS: BASOPHILS % (AUTO) 1 % (0-1); EOSINOPHILS % (AUTO) 1 % (1-7); LYMPHOCYTES % (AUTO) 28 % (22-44); MEAN CORPUSCULAR HEMOGLOBIN 32.5 pg (27.0-34.8); MEAN CORPUSCULAR HGB CONC 33.9 g/dL (32.4-35.8); MEAN PLATELET VOLUME 7.3 fL (7.4-10.4); MONOCYTES % (AUTO) 8 % (2-9); NEUTROPHILS % (AUTO) 62 % (42-75); PLATELET COUNT 382 x10^3/uL (130-400); RED BLOOD COUNT 3.12 x10^6/uL (3.82-5.3)
[2020-04-15 00:37] LABS: ALANINE AMINOTRANSFERASE 21 U/L (12-78); ALBUMIN 2.8 g/dL (3.4-5.0); ANION GAP 10 mmol/L (5-15); CALCIUM 9.1 mg/dL (8.5-10.1); CHLORIDE 103 mmol/L (98-107)
[2020-04-15 00:40] LABS: ALKALINE PHOSPHATASE 140 U/L (45-117); BILIRUBIN,TOTAL 0.4 mg/dL (0.2-1.0); CREATININE 0.93 mg/dL (0.55-1.02); TOTAL PROTEIN 7.7 g/dL (6.4-8.2)
[2020-04-15 00:42] LABS: MD NO
== END 2020-04-15 00:27 | disposition left against medical advice (07) ==
LOC: ED 04-15 00:10
DX: R07.89 Other chest pain (principal); E11.65 Type 2 diabetes mellitus with hyperglycemia; F41.1 Generalized anxiety disorder; R06.02 Shortness of breath; R11.2 Nausea with vomiting, unspecified; I10 Essential (primary) hypertension; J44.9 Chronic obstructive pulmonary disease, unspecified; F17.210 Nicotine dependence, cigarettes, uncomplicated; Z72.9 Problem related to lifestyle, unspecified
CPT/HCPCS: 36415; 80053; 83690; 85025; 99283

== ENCOUNTER 2020-04-29 03:32 | Emergency (ER) | payer MEDICARE, MEDICAID ==
[~2020-04-29] VITALS: Ht 157.5 cm; Wt 39.3 kg
[2020-04-29] MEDS ORDERED: ONDANSETRON 2MG/ML, 2ML IVPush ONE (05:00)
[2020-04-29] MEDS ORDERED: SODIUM CHLORIDE FLUSH 10ML SYR IVF ONE (05:00)
[2020-04-29 05:34] LABS: PH, VENOUS 7.393 pH (7.320-7.420)
--- NOTE | 2020-04-29 05:40 | NUR ---
PT HAS C/O VOMITING AND COUGHING UP BLOOD WITH SOME WEAKNESS. PT BLOOD SUGAR 710 FROM BLOOD DRAW. PROVIDER NOTIFIED. PT ON MONITOR WITH VSS. PT MEDICATED PER JUN.
[2020-04-29 05:43] LABS: ALANINE AMINOTRANSFERASE 25 U/L (12-78); ANION GAP 9 mmol/L (5-15); CALCIUM 9.1 mg/dL (8.5-10.1); CHLORIDE 91 mmol/L (98-107); CREATININE 1.32 mg/dL (0.55-1.02)
[2020-04-29 05:44] LABS: BASOPHILS % (AUTO) 1 % (0-1); EOSINOPHILS % (AUTO) 2 % (1-7); LYMPHOCYTES % (AUTO) 29 % (22-44); MEAN CORPUSCULAR HEMOGLOBIN 31.6 pg (27.0-34.8); MEAN CORPUSCULAR HGB CONC 33.2 g/dL (32.4-35.8); MEAN PLATELET VOLUME 8.2 fL (7.4-10.4); MONOCYTES % (AUTO) 10 % (2-9); NEUTROPHILS % (AUTO) 60 % (42-75); PLATELET COUNT 389 x10^3/uL (130-400); RED BLOOD COUNT 3.44 x10^6/uL (3.82-5.3); RED CELL DISTRIBUTION WIDTH 13.3 % (9.6-15.2)
[2020-04-29 05:45] LABS: ALKALINE PHOSPHATASE 91 U/L (45-117); BILIRUBIN,TOTAL 0.7 mg/dL (0.2-1.0); MD NO; TOTAL PROTEIN 7.1 g/dL (6.4-8.2)
[2020-04-29] MEDS ORDERED: ONDANSETRON 2MG/ML, 2ML ONE (05:49)
[2020-04-29] MEDS ORDERED: SODIUM CHLORIDE 0.9% 1,000ML IVBOLUS ONE ×2 (06:00)
[2020-04-29 06:05] LABS: ACETONE, SERUM Negative (Negative)
[2020-04-29] MEDS ORDERED: INSULIN SINGLE DOSE, ER ONE (06:09)
--- NOTE | 2020-04-29 06:43 | NUR ---
PT REMOVED B/P CUFF, CUFF REAPLIED AND PT EDUCATED ON IMPOTANCE OF THE VITAL SIGNS. PT BLOOD GLUCOSE ORDERED. PT HAS 1ST OF 2 NS BOLUS RUNNING.
--- NOTE | 2020-04-29 06:48 | NUR ---
LAB IN PT ROOM DOING GLUCOSE DRAW
[2020-04-29] MEDS ORDERED: INSULIN REGULAR 100 UNITS/ML, 3ML VIAL SQ-INSULIN SCH (07:00)
--- NOTE | 2020-04-29 07:01 | NUR ---
REPORT TO SARA COLMENARES
--- NOTE | 2020-04-29 07:06 | NUR ---
REPORT RECEIVED FROM ANDREA COLMENARES. THIS IS A 45 YO F W/ C/O COUGHING UP BLOOD SINCE 04/02/20. PT WAS FOUND TO HAVE BLOOD SUGAR >600 UPON ARRIVAL W/ KNOWN HX OF DM. HAS RECIEVED 1L BOLUS AND INSULIN. PT RESTING ON GURNEY W/ CALL LIGHT IN REACH AND SIDE RAILS UPX2. RESP EVEN AND UNLABORED, NADN. 2ND NS LITER STARTED.
--- NOTE | 2020-04-29 08:28 | NUR ---
LAB AT BEDSIDE. PT RESTING ON GURNEY W/ CALL LIGHT IN REACH AND SIDE RAILS UPX2. CRISTINA PENG.
[2020-04-29 08:38] VITALS: BP 93/50
[2020-04-29 08:47] LABS: ALBUMIN 2.9 g/dL (3.4-5.0); ANION GAP 8 mmol/L (5-15); CALCIUM 8.8 mg/dL (8.5-10.1); CHLORIDE 99 mmol/L (98-107); CREATININE 0.99 mg/dL (0.55-1.02)
--- NOTE | 2020-04-29 08:57 | NUR ---
PT TRANSFERED SELF TO ELECTRIC WHEELCHAIR TO USE RESTROOM. URINE SAMPLE COLLECTED AND SENT TO LAB. PT RETURNED TO ROOM W/O INCIDENT.
[2020-04-29 09:04] LABS: MICROSCOPIC NOT IND
--- NOTE | 2020-04-29 09:13 | NUR ---
ALL TESTS RESULTED. PT IS UP FOR RECHECK AT THIS TIME.
--- NOTE | 2020-04-29 09:47 | NUR ---
PT DOES NOT WANT TO BE DC AT THIS TIME. ERP IN ROOM TO SPEAK W/ PT.
--- NOTE | 2020-04-29 10:31 | NUR ---
Patient given discharge instructions and they have confirmed that they understand the instructions. Patient wheeled self to dc desk in personal electric wheelchair.
== END 2020-04-29 10:34 | disposition home or self-care (01) ==
LOC: ED 06:22
DX: L03.211 Cellulitis of face (principal); L03.113 Cellulitis of right upper limb; L03.114 Cellulitis of left upper limb; R06.89 Other abnormalities of breathing; E11.65 Type 2 diabetes mellitus with hyperglycemia; J44.9 Chronic obstructive pulmonary disease, unspecified; I10 Essential (primary) hypertension; Z91.14 Patient's other noncompliance with medication regimen
CPT/HCPCS: 36415; 71045; 80048; 80053; 81003; 82010; 82040; 82803; 82947; 82962; 85025; 96361; 96374; 99284; J1815; J2405; J7030